=== PATIENT | female | born 1970 | race Caucasian/White ===

== ENCOUNTER 2017-05-02 10:19 | Emergency (ER) | payer OTHER, SELFPAY ==
[~2017-05-02] VITALS: Ht 154.9 cm; Wt 123.0 kg
[~2017-05-02 10:19] MED LIST: JANU100T PO; LEVO137T2 PO; METF500T13 PO; NORCOTAB PO; VITA100067 PO
[2017-05-02 10:20] VITALS: BP 143/87
[2017-05-02] MEDS ORDERED: FLUCONAZOLE 100 MG TAB PO ONE ×2 (11:45)
[2017-05-02 11:49] LABS: CONTROL LINE UCG INT CTR LINE PRESENT
== END 2017-05-02 12:04 | disposition home or self-care (01) ==
LOC: M ED 11:15
DX: R30.0 Dysuria (principal); E11.9 Type 2 diabetes mellitus without complications; N71.9 Inflammatory disease of uterus, unspecified; Z88.6 Allergy status to analgesic agent

== ENCOUNTER 2017-06-11 14:29 | Emergency (ER) | payer SELFPAY ==
[~2017-06-11] VITALS: Ht 154.9 cm; Wt 124.7 kg
[2017-06-11] MEDS ORDERED: NS 1,000 ML IV ONE (16:00)
[2017-06-11] MEDS ORDERED: metFORMIN (GLUCOPHAGE) 500 MG TAB PO ONE (16:00)
[2017-06-11 17:31] LABS: BASO % 0.5 % (0.0-1.0); EOS # 0.1 K/mm3 (0.0-0.50); EOS % 1.4 % (0.0-3.0); LARGE UNSTAINED CELL # 0.1 K/mm3 (0.0-0.4); LARGE UNSTAINED CELL % 1.5 % (0.0-4.0); LYMPH # 2.6 K/mm3 (1.5-4.5); LYMPH % 32.7 % (24.0-44.0); MEAN CORPUSCULAR HEMOGLOBIN 30.7 pg (27.0-33.0); MEAN CORPUSCULAR HGB CONC 34.6 g/dl (32.0-36.5); MEAN CORPUSCULAR VOLUME 88.8 fl (80.0-96.0); MONO # 0.4 K/mm3 (0.0-0.8); MONO % 5.3 % (0.0-5.0); NEUTROPHILS # 4.4 K/mm3 (1.8-7.7); NEUTROPHILS % 58.6 % (36.0-66.0); PLATELET COUNT, AUTOMATED 253 k/mm3 (150-450); RED CELL DISTRIBUTION WIDTH 13.5 % (11.5-14.5); WHITE BLOOD COUNT 7.5 K/mm3 (4.0-10.0)
[2017-06-11 17:32] LABS: ANION GAP 10 MEQ/L (8-16); BLOOD UREA NITROGEN 10 MG/DL (7-18); CALCIUM LEVEL 9.2 MG/DL (8.5-10.1); CARBON DIOXIDE LEVEL 22 MEQ/L (21-32); CHLORIDE LEVEL 102 MEQ/L (98-107); CREATININE FOR GFR 0.65 MG/DL (0.55-1.02); GLOMERULAR FILTRATION RATE > 60.0 (>58); GLUCOSE, FASTING 277 MG/DL (70-105); POTASSIUM SERUM 3.8 MEQ/L (3.5-5.1); SODIUM LEVEL 134 MEQ/L (136-145)
[2017-06-11] MEDS ORDERED: NITROFURANTOIN (MACROBID) 100 MG CAP PO ONE (17:45)
[2017-06-11] MEDS ORDERED: METF500T13 PO (17:47)
[2017-06-11] MEDS ORDERED: NYSTOI TOP (17:47)
[2017-06-11] MEDS ORDERED: MACR100C43 PO (17:47)
[2017-06-11] MEDS ORDERED: DIFL150T PO (17:51)
[2017-06-11 18:05] VITALS: BP 145/95
== END 2017-06-11 18:13 | disposition home or self-care (01) ==
LOC: M ED 14:29
DX: N39.0 Urinary tract infection, site not specified (principal); B37.3 Candidiasis of vulva and vagina; E11.9 Type 2 diabetes mellitus without complications; Z79.84 Long term (current) use of oral hypoglycemic drugs; Z88.6 Allergy status to analgesic agent

== ENCOUNTER 2017-10-31 13:16 | Emergency (ER) | payer SELFPAY ==
[~2017-10-31] VITALS: Ht 154.9 cm; Wt 120.6 kg
[~2017-10-31 13:16] MED LIST changes: +DIFL150T PO; +MACR100C43 PO; +NYSTOI TOP
[2017-10-31] MEDS ORDERED: NS 1,000 ML IV SCH (13:41)
[2017-10-31] MEDS ORDERED: ONDANSETRON 4MG/2ML VIAL (J2405) IV ONE (13:45)
[2017-10-31] MEDS ORDERED: MORPHINE 2 MG/ML 1ML SYRINGE IV PRN (13:45)
[2017-10-31 14:17] LABS: BASO % 0.6 % (0.0-1.0); EOS # 0.1 10^3/uL (0.0-0.50); EOS % 0.8 % (0.0-3.0); IMMATURE GRANULOCYTE % 0.6 % (0-0); LYMPH # 2.5 10^3/uL (1.5-4.5); LYMPH % 34.1 % (24.0-44.0); MEAN CORPUSCULAR HEMOGLOBIN 30.1 pg (27.0-33.0); MEAN CORPUSCULAR HGB CONC 35.1 g/dl (32.0-36.5); MEAN CORPUSCULAR VOLUME 85.7 fl (80.0-96.0); MONO # 0.6 10^3/uL (0.0-0.8); MONO % 8.3 % (0.0-5.0); NEUTROPHILS % 55.6 % (36.0-66.0); PLATELET COUNT, AUTOMATED 256 10^3/uL (150-450); RED CELL DISTRIBUTION WIDTH 12.9 % (11.5-14.5); WHITE BLOOD COUNT 7.2 10^3/uL (4.0-10.0)
[2017-10-31 14:26] LABS: INR 0.94
[2017-10-31 15:04] LABS: ALBUMIN 3.4 GM/DL (3.2-5.2); ALBUMIN/GLOBULIN RATIO 0.97 (1.00-1.93); ALKALINE PHOSPHATASE 56 U/L (45-117); ALT/SGPT 29 U/L (12-78); ANION GAP 12 MEQ/L (8-16); AST/SGOT 15 U/L (7-37); BILIRUBIN,DIRECT 0.1 MG/DL (0.0-0.2); BILIRUBIN,TOTAL 0.4 MG/DL (0.2-1.0); BLOOD UREA NITROGEN 12 MG/DL (7-18); CALCIUM LEVEL 8.8 MG/DL (8.5-10.1); CARBON DIOXIDE LEVEL 23 MEQ/L (21-32); CHLORIDE LEVEL 104 MEQ/L (98-107); CREATININE FOR GFR 0.74 MG/DL (0.55-1.02); GLOMERULAR FILTRATION RATE > 60.0 (>58); GLUCOSE, FASTING 278 MG/DL (70-105); POTASSIUM SERUM 3.7 MEQ/L (3.5-5.1); SODIUM LEVEL 139 MEQ/L (136-145); TOTAL PROTEIN 6.9 GM/DL (6.4-8.2)
[2017-10-31] MEDS ORDERED: METF500T13 PO (15:18)
[2017-10-31 15:29] VITALS: BP 133/84
--- NOTE | 2017-10-31 19:40 | ECGEPIP ---
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
--- NOTE | 2017-10-31 21:33 | REP ---
CHEST, TWO VIEWS: COMPARISON: 10/01/2015 There is no evidence of acute infiltrate. No pleural effusion is seen. The heart is normal in size. The mediastinal silhouette is unremarkable. The visualized osseous structures are intact. IMPRESSION: No acute pulmonary disease. Signed by Sree Holloway MD 11/01/2017 08:32 P
== END 2017-10-31 15:31 | disposition home or self-care (01) ==
LOC: M ED 13:16
DX: M54.12 Radiculopathy, cervical region (principal); E11.65 Type 2 diabetes mellitus with hyperglycemia; Z91.14 Patient's other noncompliance with medication regimen; Z82.49 Family history of ischemic heart disease and other diseases of the circulatory system; Z79.84 Long term (current) use of oral hypoglycemic drugs; Z88.6 Allergy status to analgesic agent

== ENCOUNTER 2017-11-13 15:44 | Emergency (ER) | payer SELFPAY | END 2017-11-13 20:57 | disposition home or self-care (01) | LOC: M ED 15:44 | DX: S06.0X0A Concussion without loss of consciousness, initial encounter (principal); E11.9 Type 2 diabetes mellitus without complications; Y04.0XXA Assault by unarmed brawl or fight, initial encounter; Y92.89 Other specified places as the place of occurrence of the external cause | CPT/HCPCS: 70450 ==

== ENCOUNTER → 2018-01-10 | Outpatient (REF) | payer OTHER ==
[2018-01-10 13:25] LABS: BASO % 0.3 % (0.0-1.0); EOS % 0.3 % (0.0-3.0); HEMATOCRIT 42.9 % (36.0-47.0); IMMATURE GRANULOCYTE % 0.5 % (0-3.0); LYMPH # 1.3 10^3/uL (1.5-4.5); MEAN CORPUSCULAR HEMOGLOBIN 30.4 pg (27.0-33.0); MONO # 0.6 10^3/uL (0.0-0.8); MONO % 9.6 % (0.0-5.0); NEUTROPHILS # 3.9 10^3/uL (1.8-7.7); NEUTROPHILS % 67.3 % (36.0-66.0); PLATELET COUNT, AUTOMATED 243 10^3/uL (150-450); RED BLOOD COUNT 4.93 10^6/uL (4.00-5.40); RED CELL DISTRIBUTION WIDTH 13.1 % (11.5-14.5); WHITE BLOOD COUNT 5.8 10^3/uL (4.0-10.0)
[2018-01-10 13:59] LABS: ALBUMIN 3.5 GM/DL (3.2-5.2); ALKALINE PHOSPHATASE 64 U/L (45-117); ALT/SGPT 20 U/L (12-78); ANION GAP 12 MEQ/L (8-16); AST/SGOT 12 U/L (7-37); BILIRUBIN,TOTAL 0.5 MG/DL (0.2-1.0); BLOOD UREA NITROGEN 12 MG/DL (7-18); CALCIUM LEVEL 8.3 MG/DL (8.5-10.1); CARBON DIOXIDE LEVEL 22 MEQ/L (21-32); CHLORIDE LEVEL 102 MEQ/L (98-107); CHOLESTEROL LEVEL 170 MG/DL (<200); CHOLESTEROL RISK RATIO 4.594 (<5); CREATININE FOR GFR 0.69 MG/DL (0.55-1.30); FREE THYROXINE INDEX 2.4 % (1.3-4.8); GLOMERULAR FILTRATION RATE > 60.0 (>58); GLUCOSE, FASTING 260 MG/DL (70-100); HDL CHOLESTEROL 37 MG/DL (>40); NON-HDL-C 133 MG/DL; POTASSIUM SERUM 3.8 MEQ/L (3.5-5.1); SODIUM LEVEL 136 MEQ/L (136-145); T UPTAKE 32 % (30-39); THYROXINE (T4) 7.6 UG/DL (4.5-12.0); TOTAL PROTEIN 7.4 GM/DL (6.4-8.2); TRIGLYCERIDES LEVEL 215 MG/DL (<150)
[2018-01-10 14:35] LABS: ESTIMATED AVERAGE GLUCOSE 246 MG/DL (60-110); HEMOGLOBIN A1c 10.2 %
[2018-01-10 15:30] LABS: TOTAL 25(OH) VITAMIN D 11.9 NG/ML (30.0-100.0)
== END ==
LOC: M LAB REF 12:30
DX: E78.5 Hyperlipidemia, unspecified (principal); Z13.9 Encounter for screening, unspecified

== ENCOUNTER → 2018-03-20 | Outpatient (REF) | payer OTHER ==
[2018-03-20 18:26] LABS: AMORPHOUS SEDIMENT MODERATE (NEGATIVE); APPEARANCE, URINE TURBID (CLEAR); BACTERIA, URINE AUTO NEGATIVE (NEGATIVE); BILIRUBIN, URINE AUTO NEGATIVE (NEGATIVE); BLOOD, URINE BLOOD 1+ (NEGATIVE); COLOR, URINE YELLOW (YELLOW); GLUCOSE, URINE (UA) AUTO 3+ mg/dL (NEGATIVE); KETONE, URINE AUTO TRACE mg/dL (NEGATIVE); LEUKOCYTE ESTERASE, URINE AUTO NEGATIVE (NEGATIVE); MUCUS, URINE SMALL (NEGATIVE); NITRITE, URINE AUTO NEGATIVE (NEGATIVE); PROTEIN, URINE AUTO NEGATIVE (NEGATIVE); RBC, URINE AUTO 5 /HPF (0-3); SPECIFIC GRAVITY URINE AUTO 1.028 (1.002-1.035); SQUAMOUS EPITHELIAL CELL UR AU 4 /HPF (0-6); UROBILINOGEN, URINE AUTO 0.2 mg/dL (0.0-2.0); WBC, URINE AUTO 1 /HPF (0-3)
== END ==
LOC: M LAB REF 16:31
DX: N39.0 Urinary tract infection, site not specified (principal)

== ENCOUNTER 2018-03-29 14:35 | Emergency (ER) | payer OTHER ==
[2018-03-29 15:41] LABS: KETONE, URINE AUTO RFX TRACE mg/dL (NEGATIVE); LEUKOCYTE ESTERASE UR AUTO RFX NEGATIVE (NEGATIVE); MUCUS, URINE RFX SMALL (NEGATIVE); NITRITE, URINE AUTO RFX NEGATIVE (NEGATIVE); RBC, URINE AUTO RFX 0 /HPF (0-3); SPECIFIC GRAVITY UR AUTO RFX 1.026 (1.002-1.035); SQUAM EPITHELIAL CELL UR AURFX 0 /HPF (0-6); WBC, URINE AUTO RFX 0 /HPF (0-3)
[2018-03-29 15:47] LABS: BASO % 0.3 % (0.0-1.0); EOS # 0.1 10^3/uL (0.0-0.50); EOS % 0.9 % (0.0-3.0); HEMATOCRIT 43.2 % (36.0-47.0); HEMOGLOBIN 15.2 g/dl (12.0-15.5); IMMATURE GRANULOCYTE % 0.1 % (0-3.0); LYMPH # 2.5 10^3/uL (1.5-4.5); LYMPH % 33.4 % (24.0-44.0); MEAN CORPUSCULAR HEMOGLOBIN 30.5 pg (27.0-33.0); MEAN CORPUSCULAR HGB CONC 35.2 g/dl (32.0-36.5); MEAN CORPUSCULAR VOLUME 86.7 fl (80.0-96.0); MONO # 0.6 10^3/uL (0.0-0.8); MONO % 7.5 % (0.0-5.0); NEUTROPHILS # 4.4 10^3/uL (1.8-7.7); NEUTROPHILS % 57.8 % (36.0-66.0); PLATELET COUNT, AUTOMATED 267 10^3/uL (150-450); RED BLOOD COUNT 4.98 10^6/uL (4.00-5.40); WHITE BLOOD COUNT 7.6 10^3/uL (4.0-10.0)
[2018-03-29 16:07] LABS: ANION GAP 11 MEQ/L (8-16); BLOOD UREA NITROGEN 12 MG/DL (7-18); CARBON DIOXIDE LEVEL 21 MEQ/L (21-32); CHLORIDE LEVEL 107 MEQ/L (98-107); CREATININE FOR GFR 0.81 MG/DL (0.55-1.30); GLOMERULAR FILTRATION RATE > 60.0 (>58); GLUCOSE, FASTING 234 MG/DL (70-100); POTASSIUM SERUM 3.9 MEQ/L (3.5-5.1); SODIUM LEVEL 139 MEQ/L (136-145)
[2018-03-29] MEDS: METOCLOPRAMIDE INJ 10MG/2ML VIAL (J2765) IM (16:44)
[2018-03-29] MEDS: GI COCKTAIL 50ML BTL(HYOSCYAMINE/MAALOX/LIDOCAINE VISCOUS)(1:3:1) PO (16:44)
[2018-03-29] MEDS: SUCRALFATE SUSP 1GM/10ML UD PO (17:08)
[2018-03-29 18:56] LABS: ALBUMIN 3.6 GM/DL (3.2-5.2); ALBUMIN/GLOBULIN RATIO 0.88 (1.00-1.93); ALKALINE PHOSPHATASE 64 U/L (45-117); ALT/SGPT 31 U/L (12-78); AST/SGOT 24 U/L (7-37); BILIRUBIN,DIRECT < 0.1 MG/DL (0.0-0.2); BILIRUBIN,TOTAL 0.3 MG/DL (0.2-1.0); LIPASE 187 U/L (73-393); TOTAL PROTEIN 7.7 GM/DL (6.4-8.2)
== END 2018-03-29 19:51 | disposition home or self-care (01) ==
LOC: M ED 14:35
DX: R10.9 Unspecified abdominal pain (principal); R11.0 Nausea; E11.9 Type 2 diabetes mellitus without complications; Z88.8 Allergy status to other drugs, medicaments and biological substances; Z88.6 Allergy status to analgesic agent; Z79.84 Long term (current) use of oral hypoglycemic drugs
CPT/HCPCS: J2765

== ENCOUNTER → 2018-04-02 | Outpatient (REF) | payer OTHER ==
[2018-04-02 21:26] LABS: CHLAMYDIA DNA AMPLIFICATION NEGATIVE (NEGATIVE); GC DNA AMPLIFICATION NEGATIVE (NEGATIVE)
== END ==
LOC: M LAB REF 16:25
DX: Z11.3 Encounter for screening for infections with a predominantly sexual mode of transmission (principal)

== ENCOUNTER → 2018-04-02 | Outpatient (REF) | payer OTHER ==
[2018-04-03 10:18] LABS: HIV 1&2 SCREEN CENTAUR NEGATIVE (NEGATIVE)
== END ==
LOC: M LAB REF 17:28
DX: Z11.3 Encounter for screening for infections with a predominantly sexual mode of transmission (principal)
CPT/HCPCS: 86780

== ENCOUNTER → 2018-04-04 | Outpatient (CLI) | payer OTHER | LOC: M RAD 15:50 | DX: R19.7 Diarrhea, unspecified (principal); R10.9 Unspecified abdominal pain; K76.0 Fatty (change of) liver, not elsewhere classified; K42.9 Umbilical hernia without obstruction or gangrene | CPT/HCPCS: 74176 ==

== ENCOUNTER → 2018-05-23 | Outpatient (REF) | payer OTHER ==
[2018-05-23 14:36] LABS: ESTIMATED AVERAGE GLUCOSE 220 MG/DL (60-110); HEMOGLOBIN A1c 9.3 %
== END ==
LOC: M LAB REF 13:37
DX: E11.9 Type 2 diabetes mellitus without complications (principal)

== ENCOUNTER 2018-07-30 09:11 | Day surgery (SDC) | payer OTHER ==
[~2018-07-30 09:11] MED LIST changes: -DIFL150T PO; -JANU100T PO; -LEVO137T2 PO; +LIDOCAINE 2% INJ 100 MG/5 ML SDV (FOR ANES.) As Ordered; -MACR100C43 PO; -METF500T13 PO; -NORCOTAB PO; -NYSTOI TOP; +PROPOFOL 200 MG/20 ML VIAL As Ordered; -VITA100067 PO
[2018-07-30] MEDS: NS 1,000 ML IV (09:15)
[2018-07-30] MEDS ORDERED: PROPOFOL 200 MG/20 ML VIAL As Ordered (10:57)
== END 2018-07-30 11:35 | disposition home or self-care (01) ==
LOC: M OPP 09:11
DX: R19.4 Change in bowel habit (principal); R10.2 Pelvic and perineal pain; R15.9 Full incontinence of feces; K59.00 Constipation, unspecified; D12.5 Benign neoplasm of sigmoid colon; K64.8 Other hemorrhoids; E11.9 Type 2 diabetes mellitus without complications; K21.9 Gastro-esophageal reflux disease without esophagitis; R12 Heartburn; J45.909 Unspecified asthma, uncomplicated; F32.9 Major depressive disorder, single episode, unspecified; F41.9 Anxiety disorder, unspecified; Z88.8 Allergy status to other drugs, medicaments and biological substances; Z79.84 Long term (current) use of oral hypoglycemic drugs; Z79.899 Other long term (current) drug therapy
CPT/HCPCS: 45385

== ENCOUNTER → 2018-09-20 | Outpatient (REF) | payer OTHER ==
[2018-09-20 17:20] LABS: ESTIMATED AVERAGE GLUCOSE 171 MG/DL (60-110); HEMOGLOBIN A1c 7.6 %
== END ==
LOC: M LAB REF 16:34
DX: E11.9 Type 2 diabetes mellitus without complications (principal)

== ENCOUNTER → 2019-01-29 | Outpatient (REF) | payer OTHER ==
[~2019-01-29] MED LIST changes: +ALOG25TA PO; +DIFL150T PO; +GLIM2TAB PO; +JANU100T PO; +LEVO137T2 PO; -LIDOCAINE 2% INJ 100 MG/5 ML SDV (FOR ANES.) As Ordered; +MACR100C43 PO; +METF500T13 PO; +NORCOTAB PO; +NYSTOI TOP; +PEPC1TAB5 PO; -PROPOFOL 200 MG/20 ML VIAL As Ordered; +STEG5TAB PO; +SUCR1SS PO; +VITA100067 PO
[2019-01-29 14:07] LABS: BASO % 0.5 % (0.0-1.0); EOS # 0.1 10^3/uL (0.0-0.50); EOS % 1.2 % (0.0-3.0); LYMPH # 2.4 10^3/uL (1.5-4.5); LYMPH % 36.5 % (24.0-44.0); MEAN CORPUSCULAR HEMOGLOBIN 29.8 pg (27.0-33.0); MEAN CORPUSCULAR HGB CONC 34.9 g/dl (32.0-36.5); MEAN CORPUSCULAR VOLUME 85.5 fl (80.0-96.0); MONO # 0.5 10^3/uL (0.0-0.8); MONO % 7.4 % (0.0-5.0); NEUTROPHILS # 3.6 10^3/uL (1.8-7.7); NEUTROPHILS % 54.2 % (36.0-66.0); PLATELET COUNT, AUTOMATED 263 10^3/uL (150-450); RED BLOOD COUNT 5.03 10^6/uL (4.00-5.40); WHITE BLOOD COUNT 6.7 10^3/uL (4.0-10.0)
[2019-01-29 14:20] LABS: ALBUMIN 3.6 GM/DL (3.2-5.2); ALT/SGPT 42 U/L (12-78); BILIRUBIN,TOTAL 0.6 MG/DL (0.2-1.0); BLOOD UREA NITROGEN 9 MG/DL (7-18); CALCIUM LEVEL 8.8 MG/DL (8.5-10.1); CARBON DIOXIDE LEVEL 22 MEQ/L (21-32); CHLORIDE LEVEL 104 MEQ/L (98-107); CHOLESTEROL LEVEL 228 MG/DL (<200); CHOLESTEROL RISK RATIO 6.514 (<5); GLOMERULAR FILTRATION RATE > 60.0 (>58); GLUCOSE, FASTING 265 MG/DL (70-100); HDL CHOLESTEROL 35 MG/DL (>40); LDL CHOLESTEROL 141 MG/DL (<100); NON-HDL-C 193 MG/DL; POTASSIUM SERUM 4.2 MEQ/L (3.5-5.1); SODIUM LEVEL 136 MEQ/L (136-145); TOTAL PROTEIN 7.3 GM/DL (6.4-8.2); TRIGLYCERIDES LEVEL 258 MG/DL (<150)
[2019-01-29 14:26] LABS: HEMOGLOBIN A1c 10.2 %
== END ==
LOC: M LAB REF 13:38
PROVIDERS: ATTEND Nurse Practitioner Family
DX: Z13.9 Encounter for screening, unspecified (principal)

== ENCOUNTER 2019-03-31 08:00 | Outpatient (RCR) | payer OTHER ==
[~2019-03-31 08:00] MED LIST changes: +HYDR-3715 PO; -NORCOTAB PO
== END 2019-04-11 ==
LOC: M PT 08:00
PROVIDERS: ATTEND Orthopaedic Surgery
DX: M47.896 Other spondylosis, lumbar region (principal); M51.36 Other intervertebral disc degeneration, lumbar region; M47.892 Other spondylosis, cervical region

== ENCOUNTER → 2019-05-27 | Outpatient (REF) | payer OTHER ==
[2019-05-27 16:19] LABS: CHOLESTEROL RISK RATIO 5.631 (<5); FREE T4 0.86 NG/DL (0.76-1.46); TOTAL T3 113.9 NG/DL (60.0-181.0)
[2019-05-27 18:15] LABS: HEMOGLOBIN A1c 8.7 %
== END ==
LOC: M LAB REF 14:56
PROVIDERS: ATTEND Nurse Practitioner Family
DX: E11.9 Type 2 diabetes mellitus without complications (principal); E78.5 Hyperlipidemia, unspecified

== ENCOUNTER → 2020-08-15 | Outpatient (REF) | payer OTHER ==
[~2020-08-15] MED LIST changes: -GLIM2TAB PO; +GLIM2TAB4 PO
[2020-08-15 21:33] LABS: APPEARANCE, URINE CLOUDY (CLEAR); BACTERIA, URINE AUTO 1+ (NEGATIVE); BILIRUBIN, URINE AUTO NEGATIVE (NEGATIVE); BLOOD, URINE BLOOD 1+ (NEGATIVE); COLOR, URINE YELLOW (YELLOW); GLUCOSE, URINE (UA) AUTO 3+ mg/dL (NEGATIVE); KETONE, URINE AUTO TRACE mg/dL (NEGATIVE); LEUKOCYTE ESTERASE, URINE AUTO TRACE (NEGATIVE); MUCUS, URINE SMALL (NEGATIVE); NITRITE, URINE AUTO NEGATIVE (NEGATIVE); PROTEIN, URINE AUTO NEGATIVE (NEGATIVE); RBC, URINE AUTO 4 /HPF (0-3); SPECIFIC GRAVITY URINE AUTO 1.042 (1.002-1.035); SQUAMOUS EPITHELIAL CELL UR AU 8 /HPF (0-6); UROBILINOGEN, URINE AUTO 0.2 mg/dL (0.0-2.0); WBC, URINE AUTO 2 /HPF (0-3)
== END ==
LOC: M LAB REF 13:36
PROVIDERS: ATTEND Physician Assistant Medical
DX: N39.0 Urinary tract infection, site not specified (principal)

== ENCOUNTER → 2020-09-02 | Outpatient (REF) | payer OTHER ==
[2020-09-02 17:02] LABS: HEMOGLOBIN A1c 13.2 %
[2020-09-02 17:02] LABS: ALBUMIN 3.7 GM/DL (3.2-5.2); ALT/SGPT 30 U/L (12-78); BILIRUBIN,TOTAL 0.4 MG/DL (0.2-1.0); BLOOD UREA NITROGEN 14 MG/DL (7-18); CALCIUM LEVEL 9.2 MG/DL (8.5-10.1); CARBON DIOXIDE LEVEL 26 MEQ/L (21-32); CHLORIDE LEVEL 103 MEQ/L (98-107); CHOLESTEROL LEVEL 226 MG/DL (<200); CHOLESTEROL RISK RATIO 5.512 (<5); CREATININE FOR GFR 0.82 MG/DL (0.55-1.30); GLOMERULAR FILTRATION RATE > 60.0 (>58); GLUCOSE, FASTING 339 MG/DL (70-100); HDL CHOLESTEROL 41 MG/DL (>40); LDL CHOLESTEROL 127 MG/DL (<100); NON-HDL-C 185 MG/DL; POTASSIUM SERUM 4.3 MEQ/L (3.5-5.1); SODIUM LEVEL 135 MEQ/L (136-145); TOTAL PROTEIN 7.8 GM/DL (6.4-8.2); TRIGLYCERIDES LEVEL 288 MG/DL (<150)
[2020-09-02 17:03] LABS: CREATININE, URINE 64.9 MG/DL; MALB URINE SIEMENS 45.5 MG/L; MAU/CREAT RATIO 70.1 MCG/MG (0.0-30.0)
[2020-09-02 17:05] LABS: FOLATE 12.7 NG/ML; TOTAL 25(OH) VITAMIN D 23.7 NG/ML (30.0-100.0); VITAMIN B12 LEVEL 365 PG/ML
== END ==
LOC: M SFHCPLAZ 12:16
PROVIDERS: ATTEND Physician Assistant
DX: E11.9 Type 2 diabetes mellitus without complications (principal); E03.9 Hypothyroidism, unspecified; E78.2 Mixed hyperlipidemia; E55.9 Vitamin D deficiency, unspecified; G63 Polyneuropathy in diseases classified elsewhere

== ENCOUNTER → 2021-02-08 | Outpatient (CLI) | payer OTHER ==
[2021-02-08 16:06] LABS: BLOOD UREA NITROGEN 16 MG/DL (7-18); CALCIUM LEVEL 9.6 MG/DL (8.5-10.1); CARBON DIOXIDE LEVEL 25 MEQ/L (21-32); CHLORIDE LEVEL 105 MEQ/L (98-107); CREATININE FOR GFR 0.69 MG/DL (0.55-1.30); GLOMERULAR FILTRATION RATE > 60.0 (>58); GLUCOSE, FASTING 189 MG/DL (70-100); SODIUM LEVEL 139 MEQ/L (136-145)
== END ==
LOC: M PLALAB 12:59
PROVIDERS: ATTEND Nurse Practitioner Family
DX: E11.65 Type 2 diabetes mellitus with hyperglycemia (principal)

== ENCOUNTER → 2021-02-18 | Outpatient (CLI) | payer OTHER ==
--- NOTE | 2021-02-18 12:36 | REPMRS ---
Patient History The patient states she has not had a clinical breast exam in over a year. Family history of breast cancer in paternal aunt, endometrial cancer in maternal grandmother. 3D TOMOSYNTHESIS WAS PERFORMED. [facility] lifetime risk for breast cancer is 13.9%. Volpara breast density b. Digital Woman Screen Mammo: February 18, 2021 - Exam #: [id number] Bilateral CC and MLO view(s) were taken. Technologist: Luna Villareal, Technologist Prior study comparison: February 23, 2011, bilateral digital mammo screening bilat, performed at [facility]. FINDINGS: There are scattered fibroglandular densities. There has been no change in the appearance of the mammogram from the prior studies. There is a mild amount of residual fibroglandular tissue which is fairly symmetric. There is no interval development of dominant mass, architectural distortion, or clustered microcalcification suggestive of malignancy. Assessment: BI-RADS/ACR category 1 mammogram. Negative Mammogram. Recommendation Routine screening mammogram in 1 year (for women over age 40). This mammogram was interpreted with the aid of an FDA-approved computer-aided dectection system. Electronically Signed By: Sree Holloway MD 02/18/21 [id number]
== END ==
LOC: M WHC 10:20
PROVIDERS: ATTEND Physician Assistant
DX: Z12.31 Encounter for screening mammogram for malignant neoplasm of breast (principal)

== ENCOUNTER → 2021-07-26 | Outpatient (CLI) | payer OTHER | LOC: M PLALAB 12:02 | PROVIDERS: ATTEND Physician Assistant | DX: Z53.9 Procedure and treatment not carried out, unspecified reason (principal); E11.9 Type 2 diabetes mellitus without complications ==

== ENCOUNTER → 2021-08-11 | Outpatient (CLI) | payer OTHER ==
[2021-08-11 14:05] LABS: HEMOGLOBIN A1c 9.8 %
[2021-08-11 14:25] LABS: ALBUMIN 3.6 GM/DL (3.2-5.2); ALT/SGPT 37 U/L (12-78); BILIRUBIN,TOTAL 0.5 MG/DL (0.2-1.0); BLOOD UREA NITROGEN 10 MG/DL (7-18); CALCIUM LEVEL 9.2 MG/DL (8.5-10.1); CARBON DIOXIDE LEVEL 25 MEQ/L (21-32); CHLORIDE LEVEL 104 MEQ/L (98-107); CHOLESTEROL LEVEL 241 MG/DL (<200); CHOLESTEROL RISK RATIO 5.738 (<5); FREE T4 0.61 NG/DL (0.76-1.46); GLOMERULAR FILTRATION RATE > 60.0 (>51); GLUCOSE, FASTING 259 MG/DL (70-100); HDL CHOLESTEROL 42 MG/DL (>40); LDL CHOLESTEROL 151 MG/DL (<100); NON-HDL-C 199 MG/DL; POTASSIUM SERUM 4.1 MEQ/L (3.5-5.1); SODIUM LEVEL 137 MEQ/L (136-145); TOTAL PROTEIN 7.3 GM/DL (6.4-8.2); TRIGLYCERIDES LEVEL 240 MG/DL (<150)
[2021-08-11 14:27] LABS: TOTAL 25(OH) VITAMIN D 21.5 NG/ML (30.0-100.0)
[2021-08-11 14:28] LABS: MALB URINE SIEMENS 70.4 MG/L; MAU/CREAT RATIO 36.4 MCG/MG (0.0-30.0)
== END ==
LOC: M PLALAB 10:16
PROVIDERS: ATTEND Physician Assistant
DX: E11.9 Type 2 diabetes mellitus without complications (principal)

== ENCOUNTER 2021-09-15 13:11 | Emergency (ER) | payer OTHER ==
[~2021-09-15] VITALS: Ht 154.9 cm; Wt 116.9 kg
--- OUTSIDE RECORDS SUMMARY | 2021-09-15 13:19 | CCD ---
Author Author [facility] Organization [facility] Address Unknown Phone Unavailable Care Team Providers Care Career Representative Name Role Phone Jovanna Daniels Unavailable PROBLEMS Type Condition ICD9-CM Code [id number] Code Onset Dates Condition S tatus W/U Status Risk SNOMED Code Notes Problem Mixed incontinence urge and stress (male)(female) 788.33 Active confirmed 692388691 Problem Back Pain - Lumbar 724.2 Active confirmed 2 53831708 Problem Shortness of breath 786.05 Active confirmed 091713477 Problem Endometriosis, site unspecified 617.9 Active confi rmed 475456119 Problem Esophageal reflux 530.81 Active confirmed 24 3190475 Problem Diabetes mellitus without me ntion of complication, type II or unspecified type, uncontrolled 250.02 Active confirmed 788409527 Problem Unspecified hypothyroidism 244.9 Active confirmed 93245548 Problem Mixed hyperlipidemia E78.2 Active confirmed 395712194 Problem Hypertensive heart disease without heart failure I 11.9 Active confirmed 66256085 Problem Other and unspecified hyperlipidemia 272.4 Act radhika confirmed 85003366 Problem Other chronic pain G89.29 Active confirmed 8 4741722 Problem Allergic rhinitis, cause unspecified 477.9 Act radhika confirmed 53784687 Problem Type 2 diabetes mellitus wit hout complication, without long-term current use of insulin E11.9 Active confirmed 546775898 Problem Hypothyroidism, unspecified type E03.9 Active conf irmed 60960740 Problem Polyneuropathy associated with underlying disease G63 Active confirmed 088837453 Problem Vitamin D deficiency E55.9 Active confirmed 09846903 ALLERGIES Allergen (clinical drug ingredient) Drug/Non Drug Allergy do cumented on EMR Reaction Allergy Type Onset Date Status NSAIDS hives Non Drug Allergy Active aspirin Aspirin([facility] Code:[address]-44) Nausea/Vomiting Drug Aller gy Active ENCOUNTERS from 1970 to 2021-08-08 Encounter Location Date Provider [facility] [address] [facility] [phone] [place] [address] Jul, Jovanna Jeremiah IMMUNIZATIONS No Information SOCIAL HISTORY Tobacco Use: Social History Observation Description Date Details (start date - stop date) Never Smoker Sex Assigned At : Social History Observation Description Sex Assigned At Unknown Education: Question Answer Notes Level of Education: Not Finished College Audit Question Answer Notes Total Score: 0 Interpretation: Alcohol Education Language: Question Answer Notes Languages spoken: Georgian Holiness: Question Answer Notes Holiness No sabianist beliefs that would impact health care. Sexual Hx: Question Answer Notes Had sex in the last 12 months (vaginal, oral, or anal)? Yes Have you ever had an STD? Yes with Men only Use protection? No Other? Yes Chlamydia? Yes Drug and Alcohol Question Answer Notes Total Score: 0 Interpretation: No problems reported Tobacco Use: Question Answer Notes Are you a: never smoker REASON FOR REFERRAL No Information VITAL SIGNS No information MEDICATIONS Medication SIG (Take, Route, Frequency, Duration) Notes Start Da te End Date Status metFORMIN HCl ER 500 MG TAKE TWO TABLETS BY MOUTH TWICE A DAY fo r 30 duplicate Not-Taking PriLOSEC 20 mg 1 capsule Orally Once a day for reflux for 30 da y(s) March, Not-Taking Lyrica 50 MG 1 capsule Orally Twice a day for 30 Days 23 S 2020 Active metFORMIN HCl 500 mg 1 tablet with evening meal Orally twice ken ly March, Active glipiZIDE 5 MG 1 tablet 30 minutes before b reakfast Orally Once a day for 30 day(s) Jul, Active Synthroid 100 MCG 1 tablet every morning on an empty stomach Orally Once a day for hypothyroid for 30 Active Claritin 10 mg 1 tablet Orally Once a day f or allergies/allergic bronchitis for 30 day(s) March, Not-Taking Lipitor 20 MG 1 tablet Orally Once a day for 30 Active Trulicity 3 MG/0.5ML as directed Subcutaneous weekly for 30 Days Active PROCEDURES No Information RESULTS No Results REASON FOR VISIT PA Trulicity 3mg/0.5mL pen MEDICAL (GENERAL) HISTORY Type Description Date Medical History Hypothyroidism Medical History T2DM Medical History GERD Medical History Hyperlipidemia Surgical History R ankle (laparascopic, in her teens) Surgical History explorative abd surgery-endometriosis Surgical History partial hysterectomy 2014 Hospitalization History gallbladder childhood Hospitalization History childbirth Hospitalization History mental health issue (SI/HI - depress ion) x 1 week - [facility] 10 yrs ago Goals Section No Information Health Concerns No Information MEDICAL EQUIPMENT No Information MENTAL STATUS No Information FUNCTIONAL STATUS No Information ASSESSMENTS No Information PLAN OF TREATMENT Medication Medication Name Sig Start Date Stop Date Trulicity 3 MG/0.5ML as directed Subcutaneous weekly for 30 Days Lyrica 50 MG 1 capsule Orally Twice a day for 30 Days Jul, glipiZIDE 5 MG 1 tablet 30 minutes before b reakfast Orally Once a day for 30 day(s) Jul, Insurance Providers Payer Name Payer Address Payer Phone Insured Name Patient Relati onship to Insured Coverage Start Date Coverage End Date [facility] [address] [facility] [phone] SERAFIN LIM self
--- OUTSIDE RECORDS SUMMARY | 2021-09-15 13:19 | CCD ---
Author Author [facility] Organization [facility] Address Unknown Phone Unavailable Care Team Providers Care Environmental Remediation Consultant Name Role Phone Jovanna Daniels Unavailable PROBLEMS Type Condition ICD9-CM Code XGW42-DT Code Onset Dates Condition S tatus W/U Status Risk SNOMED Code Notes Problem Mixed incontinence urge and stress (male)(female) 788.33 Active confirmed 442405689 Problem Back Pain - Lumbar 724.2 Active confirmed 2 13145141 Problem Shortness of breath 786.05 Active confirmed 803845004 Problem Endometriosis, site unspecified 617.9 Active confi rmed 494068223 Problem Esophageal reflux 530.81 Active confirmed 24 2010542 Problem Diabetes mellitus without me ntion of complication, type II or unspecified type, uncontrolled 250.02 Active confirmed 215735279 Problem Unspecified hypothyroidism 244.9 Active confirmed 41085938 Problem Mixed hyperlipidemia E78.2 Active confirmed 084111974 Problem Hypertensive heart disease without heart failure I 11.9 Active confirmed 09306079 Problem Other and unspecified hyperlipidemia 272.4 Act radhika confirmed 44601617 Problem Other chronic pain G89.29 Active confirmed 8 8035441 Problem Allergic rhinitis, cause unspecified 477.9 Act radhika confirmed 77422472 Problem Type 2 diabetes mellitus wit hout complication, without long-term current use of insulin E11.9 Active confirmed 625027235 Problem Hypothyroidism, unspecified type E03.9 Active conf irmed 89044526 Problem Polyneuropathy associated with underlying disease G63 Active confirmed 427827210 Problem Vitamin D deficiency E55.9 Active confirmed 58265759 ALLERGIES Allergen (clinical drug ingredient) Drug/Non Drug Allergy do cumented on EMR Reaction Allergy Type Onset Date Status NSAIDS hives Non Drug Allergy Active aspirin Aspirin([facility] Code:[address]-54) Nausea/Vomiting Drug Aller gy Active ENCOUNTERS from 1970 to 2021-08-04 Encounter Location Date Provider Diagnosis [facility] [address] [facility] [phone] [place] [address] Jul, Jovanna Jeremiah IMMUNIZATIONS No Information SOCIAL HISTORY Tobacco Use: Social History Observation Description Date Details (start date - stop date) Never Smoker Sex Assigned At : Social History Observation Description Sex Assigned At Unknown Education: Question Answer Notes Level of Education: Not Finished College Audit Question Answer Notes Total Score: 0 Interpretation: Alcohol Education Language: Question Answer Notes Languages spoken: Uruguayan Synagogue: Question Answer Notes Synagogue No caodaism beliefs that would impact health care. Sexual [...] Information RESULTS No Results REASON FOR VISIT [facility] referral form MEDICAL (GENERAL) HISTORY Type Description Date Medical History Hypothyroidism Medical History T2DM Medical History GERD Medical History Hyperlipidemia Surgical History R ankle (laparascopic, in her teens) Surgical History explorative abd surgery-endometriosis Surgical History partial hysterectomy 2014 Hospitalization History gallbladder childhood Hospitalization History childbirth Hospitalization History mental health issue (SI/[place] - depress ion) x 1 week - [facility] 10 yrs ago Goals Section No Information [...] Insured Coverage Start Date Coverage End Date [facility] [address] [facility] [phone] SERAFIN LIM self
--- OUTSIDE RECORDS SUMMARY | 2021-09-15 13:19 | CCD ---
Author Author [facility] Organization [facility] Address Unknown Phone Unavailable Care Team Providers Care News Broadcaster Name Role Phone Jovanna Daniels Unavailable PROBLEMS Type Condition ICD9-CM Code TJD78-[id number] Code Onset Dates Condition S tatus W/U Status Risk SNOMED Code Notes Problem Mixed incontinence urge and stress (male)(female) 788.33 Active confirmed 972986473 Problem Back Pain - Lumbar 724.2 Active confirmed 2 42792630 Problem Shortness of breath 786.05 Active confirmed 917862060 Problem Endometriosis, site unspecified 617.9 Active confi rmed 014944539 Problem Esophageal reflux 530.81 Active confirmed 24 2199251 Problem Diabetes mellitus without me ntion of complication, type II or unspecified type, uncontrolled 250.02 Active confirmed 659692092 Problem Unspecified hypothyroidism 244.9 Active confirmed 53262451 Problem Mixed hyperlipidemia E78.2 Active confirmed 334049174 Problem Hypertensive heart disease without heart failure I 11.9 Active confirmed 42140869 Problem Other and unspecified hyperlipidemia 272.4 Act radhika confirmed 92470882 Problem Other chronic pain G89.29 Active confirmed 8 9469169 Problem Allergic rhinitis, cause unspecified 477.9 Act radhika confirmed 68085796 Problem Type 2 diabetes mellitus wit hout complication, without long-term current use of insulin E11.9 Active confirmed 866811122 Problem Hypothyroidism, unspecified type E03.9 Active conf irmed 42028850 Problem Polyneuropathy associated with underlying disease G63 Active confirmed 170755715 Problem Vitamin D deficiency E55.9 Active confirmed 82351715 ALLERGIES Allergen (clinical drug ingredient) Drug/Non Drug Allergy do cumented on EMR Reaction Allergy Type Onset Date Status NSAIDS hives Non Drug Allergy Active aspirin Aspirin([facility] Code:[address]-03) Nausea/Vomiting Drug Aller gy Active ENCOUNTERS from 1970 to 2021-08-04 Encounter Location Date Provider [facility] [address] [facility] [phone] [place] [address] Jul, Jovanna Jeremiah IMMUNIZATIONS No Information SOCIAL HISTORY Tobacco Use: Social History Observation Description Date Details (start date - stop date) Never Smoker Sex Assigned At : Social History Observation Description Sex Assigned At Unknown Education: Question Answer Notes Level of Education: Not Finished College Audit Question Answer Notes Total Score: 0 Interpretation: Alcohol Education Language: Question Answer Notes Languages spoken: Kosovan Pentecostalism: Question Answer Notes Pentecostalism No baptist beliefs that would impact health care. Sexual [...] Information RESULTS No Results REASON FOR VISIT scripts MEDICAL (GENERAL) HISTORY Type Description Date Medical History Hypothyroidism Medical History T2DM Medical History GERD Medical History Hyperlipidemia Surgical History R ankle (laparascopic, in her teens) Surgical History explorative abd surgery-endometriosis Surgical History partial hysterectomy 2014 Hospitalization History gallbladder childhood Hospitalization History childbirth Hospitalization History mental health issue (SI/[place] - depress ion) x 1 week - [facility] 10 yrs ago Goals Section No [...] Insured Coverage Start Date Coverage End Date [facility] COMM[facility] PLAN [facility] [address] [facility] [phone] SERAFIN LIM self
--- OUTSIDE RECORDS SUMMARY | 2021-09-15 13:19 | CCD ---
Author Author [facility] Organization [facility] Address Unknown Phone Unavailable Care Team Providers Care Marketing Planner Name Role Phone MARKUS, B SATISH CASE INVESTIGATOR Unavailable Unavailable MARKUS, B SATISH CASE INVESTIGATOR Unavailable Unavailable MARKUS, B SATISH CASE INVESTIGATOR Unavailable Unavailable MARKUS, B ASTISH CASE INVESTIGATOR Unavailable Unavailable MARKUS, B SATISH CASE INVESTIGATOR Unavailable Unavailable MARKUS, B SATISH CASE INVESTIGATOR Unavailable Unavailable MARKUS, B SATISH CASE INVESTIGATOR Unavailable Unavailable MARKUS, B SATISH CASE INVESTIGATOR Unavailable Unavailable MARKUS, B SATISH CASE INVESTIGATOR Unavailable Unavailable MARKUS, B SATISH CASE INVESTIGATOR Unavailable Unavailable MARKUS, B SATISH CASE INVESTIGATOR Unavailable Unavailable MARKUS, B SATISH CASE INVESTIGATOR Unavailable Unavailable MARKUS, B SATISH CASE INVESTIGATOR Unavailable Unavailable MARKUS, B SATISH CASE INVESTIGATOR Unavailable Unavailable MARKUS, B SATISH CASE INVESTIGATOR Unavailable Unavailable MARKUS, B SATISH CASE INVESTIGATOR Unavailable Unavailable MARKUS, B SATISH CASE INVESTIGATOR Unavailable Unavailable MARKUS, B SATISH CASE INVESTIGATOR Unavailable Unavailable MARKUS, B SATISH CASE INVESTIGATOR Unavailable Unavailable MARKUS, B SATISH CASE INVESTIGATOR Unavailable Unavailable MARKUS, B SATISH CASE INVESTIGATOR Unavailable Unavailable MARKUS, B SATISH CASE INVESTIGATOR Unavailable Unavailable MARKUS, B SATISH CASE INVESTIGATOR Unavailable Unavailable MARKUS, B SATISH CASE INVESTIGATOR Unavailable Unavailable MARKUS, B SATISH CASE INVESTIGATOR Unavailable Unavailable MARKUS, B SATISH CASE INVESTIGATOR Unavailable Unavailable MARKUS, B SATISH CASE INVESTIGATOR Unavailable Unavailable MARKUS, B SATISH CASE INVESTIGATOR Unavailable Unavailable MARKUS, B SATISH CASE INVESTIGATOR Unavailable Unavailable MARKUS, B SATISH CASE INVESTIGATOR Unavailable Unavailable MARKUS, B SATISH CASE INVESTIGATOR Unavailable Unavailable MARKUS, B SATISH CASE INVESTIGATOR Unavailable Unavailable MARKUS, B SATISH CASE INVESTIGATOR Unavailable Unavailable MARKUS, B SATISH CASE INVESTIGATOR Unavailable Unavailable MARKUS, B SATISH CASE INVESTIGATOR Unavailable Unavailable MARKUS, B SATISH CASE INVESTIGATOR Unavailable Unavailable MARKUS, B SATISH CASE INVESTIGATOR Unavailable Unavailable MARKUS, B SATISH CASE INVESTIGATOR Unavailable Unavailable MARKUS, B SATISH CASE INVESTIGATOR Unavailable Unavailable MARKUS, B SATISH CASE INVESTIGATOR Unavailable Unavailable MARKUS, B SATISH CASE INVESTIGATOR Unavailable Unavailable MARKUS, B SATISH CASE INVESTIGATOR Unavailable Unavailable MARKUS, B SATISH CASE INVESTIGATOR Unavailable Unavailable MARKUS, B SATISH CASE INVESTIGATOR Unavailable Unavailable MARKUS, B SATISH CASE INVESTIGATOR Unavailable Unavailable MARKUS, B SATISH CASE INVESTIGATOR Unavailable Unavailable MARKUS, B SATISH CASE INVESTIGATOR Unavailable Unavailable MARKUS, B SATISH CASE INVESTIGATOR Unavailable Unavailable MARKUS, B SATISH CASE INVESTIGATOR Unavailable Unavailable MARKUS, B SATISH CASE INVESTIGATOR Unavailable Unavailable MARKUS, B SATISH CASE INVESTIGATOR Unavailable Unavailable MARKUS, B SATISH CASE INVESTIGATOR Unavailable Unavailable MARKUS, B SATISH CASE INVESTIGATOR Unavailable Unavailable MARKUS, B SATISH CASE INVESTIGATOR Unavailable Unavailable MARKUS, B SATISH CASE INVESTIGATOR Unavailable Unavailable MARKUS, B SATISH CASE INVESTIGATOR Unavailable Unavailable MARKUS, B SATISH CASE INVESTIGATOR Unavailable Unavailable MARKUS, B SATISH CASE INVESTIGATOR Unavailable Unavailable MARKUS, B SATISH CASE INVESTIGATOR Unavailable Unavailable MARKUS, B SATISH CASE INVESTIGATOR Unavailable Unavailable MARKUS, B SATISH CASE INVESTIGATOR Unavailable Unavailable MARKUS, B ASTISH CASE INVESTIGATOR Unavailable Unavailable Re-disclosure Warning The records that you are about to access may contain information from federally-assisted alcohol or drug abuse programs. If such information is present, then the following federally mandated warning applies: This information has been disclosed to you from records protected by federal confidentiality rules (42 CFR part 2). The federal rules prohibit you from making any further disclosure of this information unless further disclosure is expressly permitted by the written consent of the person to whom it pertains or as otherwise permitted by 42 CFR part 2. A general authorization for the release of medical or other information is NOT sufficient for this purpose. The Federal rules restrict any use of the information to criminally investigate or prosecute any alcohol or drug abuse patient.The records that you are about to access may contain highly sensitive health information, the redisclosure of which is protected by Article 27-F of the [facility] Public Health law. If you continue you may have access to information: Regarding HIV / AIDS; Provided by facilities licensed or operated by the [facility] Office of Mental Health; or Provided by the [facility] Office for People With Developmental Disabilities. If such information is present, then the following [facility] mandated warning applies: This information has been disclosed to you from confidential records which are protected by state law. State law prohibits you from making any further disclosure of this information without the specific written consent of the person to whom it pertains, or as otherwise permitted by law. Any unauthorized further disclosure in violation of state law may result in a fine or intermediate sentence or both. A general authorization for the release of medical or other information is NOT sufficient authorization for further disc losure. Family History Family Member Name Family Member Gender Family Member Status Date o f Status Description Data Source(s) Unknown Male Problem MEDENT ([facility]) Encounters Encounter Providers Location Date Indications Data Source(s ) Unknown [address] [facility] [address] 08/05/2021 12:00:00 AM EDT eCW1 ([facility]) Unknown [address] [facility] [address] 08/04/2021 12:00:00 AM EDT eCW1 ([facility]) Unknown [address] [facility] [address] 08/04/2021 12:00:00 AM EDT eCW1 ([facility]) Outpatient [address] [facility] [address] 07/26/2021 12:00:00 AM EDT eCW1 ([facility]) Unknown [address] [facility] [address] 04/06/2021 12:00:00 AM EDT eCW1 ([facility]) Outpatient [address] [facility] [address] 01/28/2021 12:00:00 AM EDT eCW1 ([facility]) Unknown [address] [facility] [address] 01/21/2021 12:00:00 AM EST eCW1 ([facility]) Outpatient Attender: SATISH APARICIO NP Physical Therapy 02:30:00 PM EST MEDENT ([facility]) Outpatient [address] [facility] [address] 10/21/2020 12:00:00 AM EST eCW1 ([facility]) Outpatient Attender: SATISH APARICIO NP Physical Therapy 09:30:00 AM EST MEDENT ([facility]) Unknown [address] [facility] [address] 09/24/2020 12:00:00 AM EST eCW1 ([facility]) Unknown [address] [facility] [address] 09/10/2020 12:00:00 AM EDT eCW1 (Pending sale to [facility]) Outpatient Attender: SATISH APARICIO NP Physical Therapy 10:00:00 AM EDT MED[facility] ([facility]) Unknown [address] [facility] [address] 09/03/2020 12:00:00 AM EDT eCW1 (Pending sale to [facility]) Outpatient [address] [facility] [address] 09/02/2020 12:00:00 AM EDT eCW1 (Pending sale to [facility]) Immunizations Vaccine Date Status Description Data Source(s) COVID-19 VACCINE Moderna 04/20/2021 12:00:00 AM EDT completed [facility] Vaccine Series Complete: YESThis Data wa s Submitted to [facility] [employer]. COVID-19 VACCINE Moderna 03/23/2021 12:00:00 AM EDT completed [facility] Vaccine Series Complete: NOThis Data was Submitted to [facility] [employer]. Medications Medication Brand Name Start Date Product Form Dose Route Admi nistrative Instructions Pharmacy Instructions Status Indications Reaction Description Data Source(s) pregabalin 50 MG Oral Capsule [Lyrica] Lyrica 50 MG Lyrica 5 0 MG 08/04/2021 12:00:00 AM EDT 1.0 {capsule} active L yrica 50 MG eCW1 ([facility]) pregabalin 50 MG Oral Capsule [Lyrica] Lyrica 50 MG Lyrica 5 0 MG 08/04/2021 12:00:00 AM EDT 1.0 {capsule} active L yrica 50 MG eCW1 ([facility]) pregabalin 50 MG Oral Capsule [Lyrica] Lyrica 50 MG Lyrica 5 0 MG 08/04/2021 12:00:00 AM EDT 1.0 {capsule} active L yrica 50 MG eCW1 ([facility]) pregabalin 50 MG Oral Capsule [Lyrica] Lyrica 50 MG Lyrica 5 0 MG 08/04/2021 12:00:00 AM EDT 1.0 {capsule} active L yrica 50 MG eCW1 ([facility]) Glipizide 5 MG Oral Tablet glipiZIDE 5 MG glipiZIDE 5 MG 07/26/2021 12:00:00 AM EDT active glipiZIDE 5 MG eC W1 ([facility]) Glipizide 5 MG Oral Tablet glipiZIDE 5 MG glipiZIDE 5 MG 07/26/2021 12:00:00 AM EDT active glipiZIDE 5 MG eC W1 ([facility]) Glipizide 5 MG Oral Tablet glipiZIDE 5 MG glipiZIDE 5 MG 07/26/2021 12:00:00 AM EDT active glipiZIDE 5 MG eC W1 ([facility]) Glipizide 5 MG Oral Tablet glipiZIDE 5 MG glipiZIDE 5 MG 07/26/2021 12:00:00 AM EDT active glipiZIDE 5 MG eC W1 ([facility]) gabapentin 100 MG Oral Capsule Gabapentin 100 MG Gabapentin 100 MG 02/18/2021 12:00:00 AM EDT 1.0 {capsule} active G abapentin 100 MG eCW1 ([facility]) gabapentin 100 MG Oral Capsule Gabapentin 100 MG Gabapentin 100 MG 02/18/2021 12:00:00 AM EDT 1.0 {capsule} active G abapentin 100 MG eCW1 ([facility]) Fluconazole 150 MG Oral Tablet [Diflucan] Diflucan 01/14/2021 1 2:00:00 AM EST ORAL active MED[facility] ([facility]) Steglatro Steglatro 12/24/2020 12:00:00 AM EST ORAL act radhika MEDENT ([facility]) atorvastatin 20 MG Oral Tablet [Lipitor] Lipitor 20 MG Lipit or 20 MG 10/21/2020 12:00:00 AM EST 1.0 {tablet} active Li pitor 20 MG eCW1 ([facility]) atorvastatin 20 MG Oral Tablet [Lipitor] Lipitor 20 MG Lipit or 20 MG 10/21/2020 12:00:00 AM EST 1.0 {tablet} active Li pitor 20 MG eCW1 ([facility]) 0.5 ML dulaglutide 3 MG/ML Auto-Injector [Trulicity] Trulici ty 10/14/2020 12:00:00 AM EST active M EDENT ([facility]) Benjy Araujo Lancets Extra Fine 33G 09/09/2020 12:00:00 AM ED T active [facility] ([facility]) 0.5 ML dulaglutide 1.5 MG/ML Auto-Injector [Trulicity] [place] 09/09/2020 12:00:00 AM EDT completed MED[facility] ([facility]) Benjy Verio 09/09/2020 12:00:00 AM EDT act radhika MEDENT ([facility]) Insurance Providers Payer name Policy type / Coverage type Policy ID Covered libertarian ID Covered libertarian's relationship to piña Policy Piña Plan Information Medicaid S [id number] S [id number] [facility] Community Plan Commercial [id number] Self [id number] [facility] COMMUNITY PLAN [facility] [id number] SP [id number] Managed Care - [facility] P [id number] S [id number] Medicaid S [id number] S [id number] Managed Care - [facility] P [id number] S [id number] [facility] Essential Plan P [id number] S [id number] Managed Care - [facility] Community Plan P [id number] S [id number] Managed Care - [facility] P [id number] S [id number] Medicaid S [id number] S [id number] Managed Care - [facility] Community Plan P [id number] S [id number] Medicaid S [id number] S [id number] Managed Care - [facility] P [id number] S [id number] SELF PAY ONLY [id number] SP [id number] [facility] PHY [id number] SP [id number] [facility] COMMUNITY PLAN [facility] [id number] SP [id number] [facility] COMMUNITY PLAN [facility] [id number] SP [id number] [facility] Essential Plan S [id number] S [id number] Self Pay P UNAVAILABLE S UNAVAILA BLE [facility] COMMUNITY PLAN [facility] [id number] SP [id number] [facility] Health Maintenance Organization (HMO) [id number] Self [id number] [facility] Health Maintenance Organization (O) [id number] Self [id number] [facility] O [id number] S [id number] MEDICAID [id number] SP [id number] [employer] COMMUNITY PLAN [facility] [id number] SP [id number] [employer] COMMUNITY PLAN [facility] [id number] SP [id number] Problems, Conditions, and Diagnoses Code Display Name Description Problem Type Effective Dates Data Source(s) G89.29 [id number] Other chronic pain Problem 08/04/2021 12:00: 00 AM EDT eCW1 ([facility]) [id number] Essential hypertension Essential hypertension Problem 09/09/2020 12:00:00 AM EDT MED[facility] ([facility]) E55.9 Vitamin D deficiency Vitamin D deficiency Problem 09/02/2020 12:00:00 AM EDT eCW1 ([facility]) G63 [id number] Polyneuropathy associated with underlying disease Problem 09/02/2020 12:00:00 AM EDT eCW1 ([facility]) E03.9 [id number] Hypothyroidism, unspecified type Problem 09/02/2020 12:00:00 AM EDT eCW1 ([facility]) E11.9 [id number] Type 2 diabetes larissa itus without complication, without long-term current use of insulin Problem 09/02/2020 12:00:00 AM EDT eCW1 ([facility]) I11.9 34480915 Hypertensive heart disease without heart failure Problem 09/02/2020 12:00:00 AM EDT eCW1 ([facility]) E78.2 [id number] Mixed hyperlipidemia Problem 09/02/2020 12:0 0:00 AM EDT eCW1 ([facility]) Surgeries/Procedures Procedure Description Date Indications Data Source(s) Diabetic Foot Exam 09/09/2020 12:00:00 AM EDT MED[facility] ([facility]) Results ID Date Data Source [id number] 04/15/2021 12:00:00 AM EDT [facility] Name Value Range Interpretation Code Description Data Abena rce(s) Supporting Document(s) SARS coronavirus 2 Ag NEGATIVE [facility] This lab was ordered by [facility] and reported by [facility]. ID Date Data Source [id number] 04/07/2021 12:00:00 AM EDT [facility] Name Value Range Interpretation Code Description Data Abena rce(s) Supporting Document(s) SARS coronavirus 2 Ag NEGATIVE [facility] This lab was ordered by [facility] and reported by [facility]. ID Date Data Source [id number] 04/04/2021 08:48:00 AM EDT [facility] Name Value Range Interpretation Code Description Data Abena rce(s) Supporting Document(s) SARS-CoV-2 (COVID-19) RNA [Presence] in Respiratory specimen by JAE with probe detection Not Detected [facility] This lab was ordered by [facility] and reported by [employer] ID Date Data Source [id number] 03/29/2021 11:23:00 AM EDT [facility] Name Value Range Interpretation Code Description Data Abena rce(s) Supporting Document(s) SARS-CoV-2 (COVID-19) RNA [Presence] in Respiratory specimen by JAE with probe detection Not Detected [facility] This lab was ordered by [facility] and reported by [employer] ID Date Data Source [id number] 02/08/2021 01:07:00 PM EDT MEDENT ([facility]) Name Value Range Interpretation Code Description Data Abena rce(s) Supporting Document(s) Glucose, Fasting 189 mg/dL 70-100 MED[facility] ([facility]) Blood Urea Nitrogen 16 mg/dL 7-18 [facility] ([facility]) Creatinine For GFR 0.69 mg/dL 0.55-1.30 MED[facility] ([facility]) Glomerular Filtration Rate Laboratory test result MEDENT ([facility]) <content>Units are mL/min/1.73 m2</content>
<content></content>
<content>Chronic Kidney Disease Staging per NKF:</content>
<content></content>
<content>Stage I & II GFR >=60 Normal to Mildly Decreased</content>
<content>Stage III GFR 30- 59 Moderately Decreased</content>
<content>Stage IV GFR 15-29 Severely Decreased</content>
<content>Stage V GFR <15 Very Little GFR Left</content>
<content>ESRD GFR <15 on MATHEMATICS PROFESSOR</content>
<content></content> Sodium Level 139 meq/L 136-145 [facility] ([facility]) Potassium Serum 4.0 meq/L 3.5-5.1 MED[facility] ([facility]) Chloride Level 105 meq/L 98-107 [facility] ([facility]) Anion Gap 9 meq/L 8-16 [facility] ([facility]) Calcium Level 9.6 mg/dL 8.5-10.1 [facility] ([facility]) Carbon Dioxide Level 25 meq/L 21-32 [facility] ([facility]) ID Date Data Source [id number] 12/24/2020 01:42:00 PM EST MEDENT ([facility]) Name Value Range Interpretation Code Description Data Abena rce(s) Supporting Document(s) Glucose [Mass/volume] in Serum or Plasma 206 [facility] ([facility]) Hemoglobin A1c/Hemoglobin.total in Blood Laboratory test result MEDENT ([facility]) ID Date Data Source [id number] 09/02/2020 12:00:00 AM EDT eCW1 ([facility]) Name Value Range Interpretation Code Description Data Abena rce(s) Supporting Document(s) 365 eCW1 ([facility]) 12.7 eCW1 ([facility]) ID Date Data Source [id number] 09/02/2020 12:00:00 AM EDT eCW1 ([facility]) Name Value Range Interpretation Code Description Data Abnea rce(s) Supporting Document(s) 23.7 30.0-100.0 eCW1 ([facility]) ID Date Data Source [id number] 09/02/2020 12:00:00 AM EDT eCW1 ([facility]) Name Value Range Interpretation Code Description Data Abena rce(s) Supporting Document(s) Albumin/Creatinine [Mass Ratio] in Urine 45.5 eCW1 ([facility]) Microalbumin/Creatinine [Mass Ratio] in Urine 64.9 eCW1 ([facility]) Microalbumin/Creatinine [Ratio] in Urine 70.1 0.0-30.0 eCW1 ([facility]) ID Date Data Source LIPID PANEL (CARDIAC RISK) 09/02/2020 12:00:00 AM EDT eCW1 ( [facility]) Name Value Range Interpretation Code Description Data Abena rce(s) Supporting Document(s) Triglyceride [Mass/volume] in Serum or Plasma by calculation 288 <150 eCW1 ([facility]) Cholesterol in HDL [Moles/volume] in Serum or Plasma 41 >40 eCW1 ([facility]) Cholesterol in LDL [Mass/volume] in Serum or Plasma by calculation 12 7 <100 eCW1 ([facility]) Cholesterol [Moles/volume] in Serum or Plasma 226 <200 eCW1 ([facility]) 185 eCW1 ([facility]) 5.512 <5 eCW1 ([facility]) ID Date Data Source [id number] 09/02/2020 12:00:00 AM EDT eCW1 ([facility]) Name Value Range Interpretation Code Description Data Abena rce(s) Supporting Document(s) Hemoglobin A1c/Hemoglobin.total in Blood 13.2 eCW1 ([facility]) ID Date Data Source FREE T4 & TSH PANEL 09/02/2020 12:00:00 AM EDT eCW1 ([facility]) Name Value Range Interpretation Code Description Data Abena rce(s) Supporting Document(s) 4.010 0.358-3.740 eCW1 ([facility]) 1.00 0.76-1.46 eCW1 ([facility]) ID Date Data Source Comprehensive Metabolic Profile (CMP) 09/02/2020 12:00:00 AM EDT eCW1 ([facility]) Name Value Range Interpretation Code Description Data Abena rce(s) Supporting Document(s) 14 7-18 eCW1 ([facility]) 339 70-100 eCW1 ([facility]) > 60.0 >58 eCW1 ([facility]) 0.82 0.55-1.30 eCW1 ([facility]) 135 136-145 eCW1 ([facility]) 103 98-107 eCW1 ([facility]) 4.3 3.5-5.1 eCW1 ([facility]) 30 12-78 eCW1 ([facility]) 9.2 8.5-10.1 eCW1 ([facility]) 12 7-37 eCW1 ([facility]) 26 21-32 eCW1 ([facility]) 70 45-117 eCW1 ([facility]) 3.7 3.2-5.2 eCW1 ([facility]) 0.4 0.2-1.0 eCW1 ([facility]) 7.8 6.4-8.2 eCW1 ([facility]) 0.9 1.2-2.2 eCW1 ([facility]) Procedure Social History Code Duration Value Status Description Data Source(s ) Smoking 07/26/2021 12:00:00 AM EDT Never Smoker completed Never S moker eCW1 ([facility]) Smoking 07/26/2021 12:00:00 AM EDT Never Smoker completed Never S moker eCW1 ([facility]) Smoking 07/26/2021 12:00:00 AM EDT Never Smoker completed Never S moker eCW1 ([facility]) Smoking 07/26/2021 12:00:00 AM EDT Never Smoker completed Never S moker eCW1 ([facility]) Smoking 01/27/2021 12:00:00 AM EDT Never Smoker completed Never S moker eCW1 ([facility]) Smoking 01/27/2021 12:00:00 AM EDT Never Smoker completed Never S moker eCW1 ([facility]) Smoking 01/20/2021 12:00:00 AM EST Never Smoker completed Never S moker eCW1 ([facility]) Smoking 12/24/2020 12:00:00 AM EST Never Smoked Cigarettes com pleted Never Smoked Cigarettes MEDENT ([facility]) Smoking 10/21/2020 12:00:00 AM EST Never Smoker completed Never S moker eCW1 ([facility]) Smoking 09/02/2020 12:00:00 AM EDT Never Smoker completed Never S moker eCW1 ([facility]) Smoking 09/02/2020 12:00:00 AM EDT Never Smoker completed Never S moker eCW1 ([facility]) Smoking 09/02/2020 12:00:00 AM EDT Never Smoker completed Never S moker eCW1 ([facility]) Smoking 09/02/2020 12:00:00 AM EDT Never Smoker completed Never S moker eCW1 ([facility]) Vital Signs ID Date Data Source UNK Name Value Range Interpretation Code Description Data Source(s) Body weight 258 [lb_av] 258 [lb_av] eCW1 ([facility]) Body weight 117.03 kg 117.03 kg eCW1 ([facility]) Body height 61.75 [in_i] 61.75 [in_i] eCW1 ([facility]) Body mass index (BMI) [Ratio] 47.57 kg/m2 47.57 kg/m2 W1 ([facility]) Heart rate 105 /min 105 /min eCW1 ([facility]) Respiratory rate 18 /min 18 /min eCW1 ([facility]) Body temperature 97.7 [degF] 97.7 [degF] eCW1 ( [facility]) Systolic blood pressure 124 mm[Hg] 124 mm[Hg] e CW1 ([facility]) Diastolic blood pressure 8 mm[Hg] 8 mm[Hg] eCW1 ([facility]) Body weight 253 [lb_av] 253 [lb_av] eCW1 ([facility]) Body height 61.75 [in_i] 61.75 [in_i] eCW1 ([facility]) Body mass index (BMI) [Ratio] 46.64 kg/m2 46.64 kg/m2 eCW1 ([facility]) Heart rate 99 /min 99 /min eCW1 ([facility]) Respiratory rate 18 /min 18 /min eCW1 ([facility]) Body temperature 97.3 [degF] 97.3 [degF] eCW1 ( [facility]) Systolic blood pressure 122 mm[Hg] 122 mm[Hg] e CW1 ([facility]) Diastolic blood pressure 84 mm[Hg] 84 mm[Hg] eCW1 ([facility]) Systolic blood pressure 126 mm[Hg] 126 mm[Hg] M EDENT ([facility]) Diastolic blood pressure 86 mm[Hg] 86 mm[Hg] MEDENT ([facility]) Body height 61.4 [in_i] 61.4 [in_i] MEDENT ([facility]) 5'1.40" Body weight 260.12 [lb_av] 260.12 [lb_av] MEDEN T ([facility]) Body temperature 96.4 [degF] 96.4 [degF] MEDENT ([facility]) Heart rate 87 /min 87 /min MEDENT ([facility]) Body mass index (BMI) [Ratio] 48.5 kg/m2 48.5 k g/m2 MEDENT ([facility]) Oxygen saturation in Arterial blood by Pulse oximetry 98 % 98 % MEDENT ([facility]) Body weight 265 [lb_av] 265 [lb_av] eCW1 ([facility]) Body height 61.75 [in_i] 61.75 [in_i] eCW1 ([facility]) Heart rate 93 /min 93 /min eCW1 ([facility]) Body mass index (BMI) [Ratio] 48.86 kg/m2 48.86 kg/m2 eCW1 ([facility]) Respiratory rate 18 /min 18 /min eCW1 ([facility]) Body temperature 97.5 [degF] 97.5 [degF] eCW1 ( [facility]) Systolic blood pressure 122 mm[Hg] 122 mm[Hg] e CW1 ([facility]) Diastolic blood pressure 80 mm[Hg] 80 mm[Hg] eCW1 ([facility]) Systolic blood pressure 122 mm[Hg] 122 mm[Hg] M EDENT ([facility]) Diastolic blood pressure 80 mm[Hg] 80 mm[Hg] MEDENT ([facility]) Heart rate 68 /min 68 /min MEDENT ([facility]) Body temperature 97.2 [degF] 97.2 [degF] MEDENT ([facility]) Body height 61.4 [in_i] 61.4 [in_i] MEDENT ([facility]) 5'1.40" Body weight 262.00 [lb_av] 262.00 [lb_av] MEDEN T ([facility]) Body mass index (BMI) [Ratio] 48.9 kg/m2 48.9 k g/m2 MEDENT ([facility]) Systolic blood pressure 142 mm[Hg] 142 mm[Hg] M EDENT ([facility]) Diastolic blood pressure 84 mm[Hg] 84 mm[Hg] MEDENT ([facility]) Heart rate 73 /min 73 /min MEDENT ([facility]) Body temperature 97.1 [degF] 97.1 [degF] MEDENT ([facility]) Body height 61.4 [in_i] 61.4 [in_i] MEDENT ([facility]) 5'1.40" Body weight 265.25 [lb_av] 265.25 [lb_av] MEDEN T ([facility]) Body mass index (BMI) [Ratio] 49.5 kg/m2 49.5 k g/m2 MEDENT ([facility]) Oxygen saturation in Arterial blood by Pulse oximetry 97 % 97 % MEDENT ([facility]) Body weight 264 [lb_av] 264 [lb_av] eCW1 ([facility]) Body height 61.75 [in_i] 61.75 [in_i] eCW1 ([facility]) Heart rate 111 /min 111 /min eCW1 ([facility]) Respiratory rate 18 /min 18 /min eCW1 ([facility]) Body temperature 98.1 [degF] 98.1 [degF] eCW1 ( [facility]) Systolic blood pressure 130 mm[Hg] 130 mm[Hg] e CW1 ([facility]) Diastolic blood pressure 80 mm[Hg] 80 mm[Hg] eCW1 ([facility]) Body mass index (BMI) [Ratio] 48.67 kg/m2 48.67 kg/m2 eCW1 ([facility]) Patient Treatment Plan of Care Planned Activity Planned Date Details Description Data Source (s) pregabalin 50 MG Oral Capsule [Lyrica] 08/04/2021 12:00:00 AM EDT eCW1 ([facility]) pregabalin 50 MG Oral Capsule [Lyrica] 08/04/2021 12:00:00 AM EDT eCW1 ([facility]) pregabalin 50 MG Oral Capsule [Lyrica] 08/04/2021 12:00:00 AM EDT eCW1 ([facility]) pregabalin 50 MG Oral Capsule [Lyrica] 08/04/2021 12:00:00 AM EDT eCW1 ([facility]) Glipizide 5 MG Oral Tablet 07/26/2021 12:00:00 AM EDT eCW1 ([facility]) Glipizide 5 MG Oral Tablet 07/26/2021 12:00:00 AM EDT eCW1 ([facility]) Glipizide 5 MG Oral Tablet 07/26/2021 12:00:00 AM EDT eCW1 ([facility]) Glipizide 5 MG Oral Tablet 07/26/2021 12:00:00 AM EDT eCW1 ([facility]) gabapentin 100 MG Oral Capsule 02/18/2021 12:00:00 AM EDT eCW1 ([facility]) gabapentin 100 MG Oral Capsule 02/18/2021 12:00:00 AM EDT eCW1 ([facility]) atorvastatin 20 MG Oral Tablet [Lipitor] 10/21/2020 12:00:00 AM EST eCW1 ([facility])
--- OUTSIDE RECORDS SUMMARY | 2021-09-15 13:19 | CCD ---
Author Author [facility] Organization [facility] Address Unknown Phone Unavailable Care Team Providers Care Case Advocate Name Role Phone Jovanna Daniels Unavailable PROBLEMS Type Condition ICD9-CM Code [id number] Code Onset Dates Condition S tatus W/U Status Risk SNOMED Code Notes Problem Mixed incontinence urge and stress (male)(female) 788.33 Active confirmed 589652986 Problem Back Pain - Lumbar 724.2 Active confirmed 2 22310627 Problem Shortness of breath 786.05 Active confirmed 916844421 Problem Endometriosis, site unspecified 617.9 Active confi rmed 758530487 Problem Esophageal reflux 530.81 Active confirmed 24 4633891 Problem Diabetes mellitus without me ntion of complication, type II or unspecified type, uncontrolled 250.02 Active confirmed 725120680 Problem Unspecified hypothyroidism 244.9 Active confirmed 92375573 Problem Mixed hyperlipidemia E78.2 Active confirmed 904737324 Problem Hypertensive heart disease without heart failure I 11.9 Active confirmed 53652111 Problem Other and unspecified hyperlipidemia 272.4 Act radhika confirmed 80628014 Problem Other chronic pain G89.29 Active confirmed 8 3241724 Problem Allergic rhinitis, cause unspecified 477.9 Act radhika confirmed 55728174 Problem Type 2 diabetes mellitus wit hout complication, without long-term current use of insulin E11.9 Active confirmed 585382494 Problem Hypothyroidism, unspecified type E03.9 Active conf irmed 78592597 Problem Polyneuropathy associated with underlying disease G63 Active confirmed 079543796 Problem Vitamin D deficiency E55.9 Active confirmed 42197506 ALLERGIES Allergen (clinical drug ingredient) Drug/Non Drug Allergy do cumented on EMR Reaction Allergy Type Onset Date Status NSAIDS hives Non Drug Allergy Active aspirin Aspirin([facility] Code:[address]-65) Nausea/Vomiting Drug Aller gy Active ENCOUNTERS from 1971 to 2021-08-05 Encounter Location Date Provider Diagnosis [facility] Mayuri [phone] [place] [address] 14 Jul, 2021 Jovanna Daniels Type 2 diabetes mellitus wit hout complication, without long-term current use of insulin E11.9 ; Hypertensive heart disease without heart failure I11.9 ; Mixed hyperlipidemia E78.2 ; Hypothyroidism, unspecified type E03.9 ; Polyneuropathy associated with underlying disease G63 ; Vitamin D deficiency E55.9 ; Low back pain M54.5 and Other chronic pain G89.29 IMMUNIZATIONS No Information SOCIAL HISTORY Tobacco Use: Social History Observation Description Date Details (start date - stop date) Never Smoker Sex Assigned At : Social History Observation Description Sex Assigned At Unknown Education: Question Answer Notes Level of Education: Not Finished College Audit Question Answer Notes Total Score: 0 Interpretation: Alcohol Education Language: Question Answer Notes Languages spoken: Ecuadorean Sabianism: Question Answer Notes Sabianism No mu-ism beliefs that would impact health care. Sexual [...] you a: never smoker REASON FOR REFERRAL from 1971 to 2021-08-05 Reason 51y/o female with chronic lo w back pain, was a patient at [facility] years ago, would like to re-establish Diagnosis 1 Low back pain (M54.5) Diagnosis 2 Other chronic pain (G89.29) Referral Organization [facility] Mayuri Referring Provider First Name Jovanna Referring Provider Last Name Jeremiah Referring Provider Specialty Family Medicine Referred Provider [facility],Orthopedics Referred Provider Specialty Orthopedic Surgery Referral Priority Routine General Notes Kell Macedo 08/04/2021 1:49 :55 PM > Referral submitted online, referral ID#[id number], scanned into patient's chart, faxedKell Macedo 08/04/2021 1:50:22 PM > referral faxed to [facility] Clinical Notes Elena Carnes 08/04/2021 11:47:19 AM > Waiting on [facility] referral auth VITAL SIGNS Weight 258 lbs Jul, Weight-kg 117.03 kg Jul, Height 61.75 in Jul, BMI 47.57 kg/m2 Jul, Heart Rate 105 /min Jul, Respiratory Rate 18 /min Jul, Temperature 97.7 degrees Fahrenheit Jul, Oximetry 99 Jul, Blood pressure systolic 124 mm Hg Jul, Blood pressure diastolic 8 mm Hg Jul, MEDICATIONS Medication SIG (Take, Route, Frequency, Duration) Notes Start Da te End Date Status metFORMIN HCl ER 500 MG TAKE TWO TABLETS BY MOUTH TWICE A DAY fo r 30 duplicate Not-Taking PriLOSEC 20 mg 1 capsule Orally Once a day for reflux for 30 da y(s) March, Not-Taking Lyrica 50 MG 1 capsule Orally Twice a day for 30 Days 23 S , 2020 Active metFORMIN HCl 500 mg 1 [...] Information RESULTS No Results REASON FOR VISIT follow up MEDICAL (GENERAL) HISTORY Type Description Date Medical History Hypothyroidism Medical History T2DM Medical History GERD Medical History Hyperlipidemia Surgical History R ankle (laparascopic, in her teens) Surgical History explorative abd surgery-endometriosis Surgical History partial hysterectomy 2015 Hospitalization History gallbladder childhood Hospitalization History childbirth Hospitalization History mental health issue (SI/HI - depress ion) x 1 week - [facility] 10 yrs ago Goals Section No Information Health Concerns No Information MEDICAL EQUIPMENT No Information MENTAL STATUS No Information FUNCTIONAL STATUS No Information ASSESSMENTS Encounter Date Diagnosis Assessment Notes Treatment Notes Treatm ent Clinical Notes Jul, Type 2 diabetes mellitus wit hout complication, without long-term current use of insulin (ICD-10 - E11.9) will add glipizide to patients regimen and increase her trulicity dose to 3mg weekly she should follow up in 6 weeks to go over her most recent glucose readings Jul, Hypertensive heart disease without heart failure (ICD-10 - I11.9) Per JNC 8 guidelines, goal BP < 140/90 (150/90 if age >60), is meeting goal on current regimen. Advised heart-healthy diet, sodium restriction Jul, Mixed hyperlipidemia (ICD-10 - E78.2) on Lipitor, will recheck lipids in 6 months Jul, Hypothyroidism, unspecified type (ICD-10 - E03.9 ) patient is asymptomatic on current dose of levothyroxine Jul, Polyneuropathy associated with underlying diseas e (ICD-10 - G63) symptoms worse at night, will send Gabapentin 100mg bid for patient to start for her symptoms iSTOP#: [id number] Jul, Vitamin D deficiency (ICD-10 - E55.9) on OTC supplements Jul, Low back pain (ICD-10 - M54.5) will refer patient back to [facility] per her request she should take tylenol for pain control and can use ice/heat as well Jul, Other chronic pain (ICD-10 - G89.29) PLAN OF TREATMENT Medication Medication Name Sig Start Date Stop Date Trulicity 3 MG/0.5ML as directed Subcutaneous weekly for 30 Days Lyrica 50 MG 1 capsule Orally Twice a day for 30 Days Jul, glipiZIDE 5 MG 1 tablet 30 minutes before b reakfast Orally Once a day for 30 day(s) Jul, Treatment Notes Assessment Notes Clinical Notes Type 2 diabetes mellitus without complic ation, without long-term current use of insulin will add glipizide to patien ts regimen and increase her trulicity dose to 3mg weeklyshe should follow up in 6 weeks to go over her most recent glucose readings Hypertensive heart disease without heart failure Per JNC 8 guidelines, goal BP < 140/90 (150/90 if age >60), is meeting goal on current regimen. Advised heart- healthy diet, sodium restriction Mixed hyperlipidemia on Lipitor, will re check lipids in 6 months Hypothyroidism, unspecified type patient is asymptomatic on current dose of levothyroxine Polyneuropathy associated with underlying disease symptoms worse at night, will send Gabapentin 100mg bid for patient to start for her symptomsiSTOP#: [id number] Vitamin D deficiency on OTC supplements Low back pain will refer patient b emmett to [facility] per her requestshe should take tylenol for pain control and can use ice/heat as well Future Test Test Name Order Date HEMOGLOBIN A1c [id number] Comprehensive Metabolic Profile (CMP) [id number] LIPID PANEL (CARDIAC RISK) [id number] FREE T4 & TSH PANEL [id number] VITAMIN D 25-HYDROXY [id number] MICROALBUMIN RANDOM [id number] Referrals Referral Date Details 51y/o female with chronic lo w back pain, was a patient at [facility] years ago, would like to re-establish, Orthopedics [facility] Next Appt Details 6 Weeks- Diabetes med check Reason: Insurance Providers Payer Name Payer Address Payer Phone Insured Name Patient Relati onship to Insured Coverage Start Date Coverage End Date [facility] [employer] [facility] [address] [facility] [phone] SERAFIN LIM self
--- OUTSIDE RECORDS SUMMARY | 2021-09-15 14:08 | CCD ---
Author Author [facility] Organization [facility] Address Unknown Phone Unavailable Care Team Providers Care Fighter Pilot Name Role Phone MARKUS, B SATISH CAMP HEAD COUNSELOR Unavailable Unavailable MARKUS, B SATISH CAMP HEAD COUNSELOR Unavailable Unavailable MARKUS, B SATISH CAMP HEAD COUNSELOR Unavailable Unavailable MARKUS, B SATISH CAMP HEAD COUNSELOR Unavailable Unavailable MARKUS, B SATISH CAMP HEAD COUNSELOR Unavailable Unavailable MARKUS, B SATISH CAMP HEAD COUNSELOR Unavailable Unavailable MARKUS, B SATISH CAMP HEAD COUNSELOR Unavailable Unavailable MARKUS, B SATISH CAMP HEAD COUNSELOR Unavailable Unavailable MARKUS, B SATISH CAMP HEAD COUNSELOR Unavailable Unavailable MARKUS, B SATISH CAMP HEAD COUNSELOR Unavailable Unavailable MARKUS, B SATISH CAMP HEAD COUNSELOR Unavailable Unavailable MARKUS, B SATISH CAMP HEAD COUNSELOR Unavailable Unavailable MARKUS, B SATISH CAMP HEAD COUNSELOR Unavailable Unavailable MARKUS, B SATISH CAMP HEAD COUNSELOR Unavailable Unavailable MARKUS, B SATISH CAMP HEAD COUNSELOR Unavailable Unavailable MARKUS, B SATISH CAMP HEAD COUNSELOR Unavailable Unavailable MARKUS, B SATISH CAMP HEAD COUNSELOR Unavailable Unavailable MARKUS, B SATISH CAMP HEAD COUNSELOR Unavailable Unavailable MARKUS, B SATISH CAMP HEAD COUNSELOR Unavailable Unavailable MARKUS, B SATISH CAMP HEAD COUNSELOR Unavailable Unavailable MARKUS, B SATISH CAMP HEAD COUNSELOR Unavailable Unavailable MARKUS, B SATISH CAMP HEAD COUNSELOR Unavailable Unavailable MARKUS, B SATISH CAMP HEAD COUNSELOR Unavailable Unavailable MARKUS, B SATISH CAMP HEAD COUNSELOR Unavailable Unavailable MARKUS, B SATISH CAMP HEAD COUNSELOR Unavailable Unavailable MARKUS, B SATISH CAMP HEAD COUNSELOR Unavailable Unavailable MARKUS, B SATISH CAMP HEAD COUNSELOR Unavailable Unavailable MARKUS, B SATISH CAMP HEAD COUNSELOR Unavailable Unavailable MARKUS, B SATISH CAMP HEAD COUNSELOR Unavailable Unavailable MARKUS, B SATISH CAMP HEAD COUNSELOR Unavailable Unavailable MARKUS, B SATISH CAMP HEAD COUNSELOR Unavailable Unavailable MARKUS, B SATISH CAMP HEAD COUNSELOR Unavailable Unavailable MARKUS, B SATISH CAMP HEAD COUNSELOR Unavailable Unavailable MARKUS, B SATISH CAMP HEAD COUNSELOR Unavailable Unavailable MARKUS, B SATISH CAMP HEAD COUNSELOR Unavailable Unavailable MARKUS, B SATISH CAMP HEAD COUNSELOR Unavailable Unavailable MARKUS, B SATISH CAMP HEAD COUNSELOR Unavailable Unavailable MARKUS, B SATISH CAMP HEAD COUNSELOR Unavailable Unavailable MARKUS, B SATISH CAMP HEAD COUNSELOR Unavailable Unavailable MARKUS, B SATISH CAMP HEAD COUNSELOR Unavailable Unavailable MARKUS, B SATISH CAMP HEAD COUNSELOR Unavailable Unavailable MARKUS, B SATISH CAMP HEAD COUNSELOR Unavailable Unavailable MARKUS, B SATISH CAMP HEAD COUNSELOR Unavailable Unavailable MARKUS, B SATISH CAMP HEAD COUNSELOR Unavailable Unavailable MARKUS, B SATISH CAMP HEAD COUNSELOR Unavailable Unavailable MARKUS, B SATISH CAMP HEAD COUNSELOR Unavailable Unavailable MARKUS, B SATISH CAMP HEAD COUNSELOR Unavailable Unavailable MARKUS, B SATISH CAMP HEAD COUNSELOR Unavailable Unavailable MARKUS, B SATISH CAMP HEAD COUNSELOR Unavailable Unavailable MARKUS, B SATISH CAMP HEAD COUNSELOR Unavailable Unavailable MARKUS, B SATISH CAMP HEAD COUNSELOR Unavailable Unavailable MARKUS, B SATISH CAMP HEAD COUNSELOR Unavailable Unavailable MARKUS, B SATISH CAMP HEAD COUNSELOR Unavailable Unavailable MARKUS, B SATISH CAMP HEAD COUNSELOR Unavailable Unavailable MARKUS, B SATISH CAMP HEAD COUNSELOR Unavailable Unavailable MARKUS, B SATISH CAMP HEAD COUNSELOR Unavailable Unavailable MARKUS, B SATISH CAMP HEAD COUNSELOR Unavailable Unavailable MARKUS, B SATISH CAMP HEAD COUNSELOR Unavailable Unavailable MARKUS, B SATISH CAMP HEAD COUNSELOR Unavailable Unavailable MARKUS, B SATISH CAMP HEAD COUNSELOR Unavailable Unavailable AMRKUS, B SATISH CAMP HEAD COUNSELOR Unavailable Unavailable MRAKUS, B SATISH CAMP HEAD COUNSELOR Unavailable Unavailable Re-disclosure Warning The records that [...] is protected by Article 27-F of the [facility] Public Health law. If you continue you may have access to information: Regarding HIV / AIDS; Provided by facilities licensed or operated by the [facility] Office of Mental Health; or Provided by the [facility] Office for People With Developmental Disabilities. If such information is present, then the following [facility] mandated warning applies: This information has [...] law may result in a fine or prison sentence or both. A general authorization for the release of medical or other information is NOT sufficient authorization for further disc losure. Family History Family Member Name Family Member Gender Family Member Status Date o f Status Description Data Source(s) Unknown Male Problem MEDENT ([facility]) Encounters Encounter Providers Location Date Indications Data Source(s ) Unknown [address] [facility] [address] 08/05/2021 12:00:00 AM EDT eCW1 ([facility]) Unknown [address] [facility] [address] 08/04/2021 12:00:00 AM EDT eCW1 ([facility]) Unknown [address] [facility] [address] 08/04/2021 12:00:00 AM EDT eCW1 ([facility]) Outpatient [address] [facility] [address] 07/26/2021 12:00:00 AM EDT eCW1 ([facility]) Unknown [address] [facility] [address] 04/06/2021 12:00:00 AM EDT eCW1 ([facility]) Outpatient [address] [facility] [address] 01/28/2021 12:00:00 AM EDT eCW1 ([facility]) Unknown [address] [facility] [address] 01/21/2021 12:00:00 AM EST eCW1 ([facility]) Outpatient Attender: SATISH APARICIO NP Physical Therapy 02:30:00 PM EST MEDENT ([facility]) Outpatient [address] [facility] [address] 10/21/2020 12:00:00 AM EST eCW1 ([facility]) Outpatient Attender: SATISH APARICIO NP Physical Therapy 09:30:00 AM EST MEDENT ([facility]) Unknown [address] [facility] [address] 09/24/2020 12:00:00 AM EST eCW1 ([facility]) Unknown [address] [facility] [address] 09/10/2020 12:00:00 AM EDT eCW1 ([facility]) Outpatient Attender: SATISH APARICIO NP Physical Therapy 10:00:00 AM EDT MEDENT ([facility]) Unknown [address] [facility] [address] 09/03/2020 12:00:00 AM EDT eCW1 ([facility]) Outpatient [address] [facility] [address] 09/02/2020 12:00:00 AM EDT eCW1 ([facility]) Immunizations Vaccine Date Status Description Data Source(s) COVID-19 VACCINE Moderna 04/20/2021 12:00:00 AM EDT completed [facility] Vaccine Series Complete: YESThis Data wa s Submitted to [facility]. COVID-19 VACCINE Moderna 03/23/2021 12:00:00 AM EDT completed [facility] Vaccine Series Complete: NOThis Data was Submitted to [facility] [employer]. Medications Medication Brand Name Start Date Product Form Dose Route Admi nistrative Instructions Pharmacy Instructions Status Indications Reaction Description Data Source(s) pregabalin 50 MG Oral Capsule [Lyrica] Lyrica 50 MG Lyrica 5 0 MG 08/04/2021 12:00:00 AM EDT 1.0 {capsule} active L yrica 50 MG eCW1 ([facility]) pregabalin 50 MG Oral Capsule [Lyrica] Lyrica 50 MG Lyrica 5 0 MG 08/04/2021 12:00:00 AM EDT 1.0 {capsule} active L yrica 50 MG eCW1 ([facility]) pregabalin 50 MG Oral Capsule [Lyrica] Lyrica 50 MG Lyrica 5 0 MG 08/04/2021 12:00:00 AM EDT 1.0 {capsule} active L yrica 50 MG eCW1 ([facility]) pregabalin 50 MG Oral Capsule [Lyrica] Lyrica 50 MG Lyrica 5 0 MG 08/04/2021 12:00:00 AM EDT 1.0 {capsule} active L yrica 50 MG eCW1 ([facility]) Glipizide 5 MG Oral Tablet glipiZIDE 5 MG glipiZIDE 5 MG 07/26/2021 12:00:00 AM EDT active glipiZIDE 5 MG eC W1 ([facility]) Glipizide 5 MG Oral Tablet glipiZIDE 5 MG glipiZIDE 5 MG 07/26/2021 12:00:00 AM EDT active glipiZIDE 5 MG eC W1 ([facility]) Glipizide 5 MG Oral Tablet glipiZIDE 5 MG glipiZIDE 5 MG 07/26/2021 12:00:00 AM EDT active glipiZIDE 5 MG eC W1 ([facility]) Glipizide 5 MG Oral Tablet glipiZIDE 5 MG glipiZIDE 5 MG 07/26/2021 12:00:00 AM EDT active glipiZIDE 5 MG eC W1 ([facility]) gabapentin 100 MG Oral Capsule Gabapentin 100 MG Gabapentin 100 MG 02/18/2021 12:00:00 AM EDT 1.0 {capsule} active G abapentin 100 MG eCW1 ([facility]) gabapentin 100 MG Oral Capsule Gabapentin 100 MG Gabapentin 100 MG 02/18/2021 12:00:00 AM EDT 1.0 {capsule} active G abapentin 100 MG eCW1 ([facility]) Fluconazole 150 MG Oral Tablet [Diflucan] Diflucan 01/14/2021 1 2:00:00 AM EST ORAL active MEDENT ([facility]) Steglatro Steglatro 12/24/2020 12:00:00 AM EST ORAL act radhika MEDENT ([facility]) atorvastatin 20 MG Oral Tablet [Lipitor] Lipitor 20 MG Lipit or 20 MG 10/21/2020 12:00:00 AM EST 1.0 {tablet} active Li pitor 20 MG eCW1 ([facility]) atorvastatin 20 MG Oral Tablet [Lipitor] Lipitor 20 MG Lipit or 20 MG 10/21/2020 12:00:00 AM EST 1.0 {tablet} active Li pitor 20 MG eCW1 ([facility]) 0.5 ML dulaglutide 3 MG/ML Auto-Injector [Trulicity] Trulici ty 10/14/2020 12:00:00 AM EST active M EDENT ([facility]) Benjy Araujo Lancets Extra Fine 33G 09/09/2020 12:00:00 AM ED T active [facility] ([facility]) 0.5 ML dulaglutide 1.5 MG/ML Auto-Injector [Trulicity] [place] 09/09/2020 12:00:00 AM EDT completed MEDENT ([facility]) Benjy Verio 09/09/2020 12:00:00 AM EDT act radhika MEDENT ([facility]) Insurance Providers Payer name Policy type / Coverage type Policy ID Covered green party ID Covered green party's relationship to piña Policy Piña Plan Information Medicaid S [id number] S [id number] [facility] Community Plan Commercial [id number] Self [id number] [facility] [id number] SP [id number] Managed Care - [facility] P [id number] S [id number] Medicaid S [id number] S [id number] Managed Care - [facility] P [id number] S [id number] [facility] Essential Plan P [id number] S [id number] Managed Care - [facility] Community Plan P [id number] S [id number] Managed Care - [facility] P [id number] S [id number] Medicaid S [id number] S [id number] Managed Care - [facility] Community Plan P [id number] S [id number] Medicaid S [id number] S [id number] Managed Care - [facility] P [id number] S [id number] SELF PAY ONLY [id number] SP [id number] [facility] PHY [id number] SP [id number] [facility] COMM[facility]ITY [facility]AN [facility] [id number] SP [id number] [facility] [id number] SP [id number] [facility] Essential Plan S [id number] S [id number] Self Pay P UNAVAILABLE S UNAVAILA BLE [facility] [id number] SP [id number] [facility] Health Maintenance Organization (HMO) [id number] Self [id number] [facility] Health Maintenance Organization (O) [id number] Self [id number] [facility] O [id number] S [id number] MEDICAID [id number] SP [id number] [employer] COMMUNITY PLAN [facility] [id number] SP [id number] [employer] COMMUNITY PLAN [facility] [id number] SP [id number] Problems, Conditions, and Diagnoses Code Display Name Description Problem Type Effective Dates Data Source(s) G89.29 [id number] Other chronic pain Problem 08/04/2021 12:00: 00 AM EDT eCW1 ([facility]) [id number] Essential hypertension Essential hypertension Problem 09/09/2020 12:00:00 AM EDT MEDENT ([facility]) E55.9 Vitamin D deficiency Vitamin D deficiency Problem 09/02/2020 12:00:00 AM EDT eCW1 ([facility]) G63 [id number] Polyneuropathy associated with underlying disease Problem 09/02/2020 12:00:00 AM EDT eCW1 ([facility]) E03.9 [id number] Hypothyroidism, unspecified type Problem 09/02/2020 12:00:00 AM EDT eCW1 ([facility]) E11.9 [id number] Type 2 diabetes larissa itus without complication, without long-term current use of insulin Problem 09/02/2020 12:00:00 AM EDT eCW1 ([facility]) I11.9 [id number] Hypertensive heart disease without heart failure Problem 09/02/2020 12:00:00 AM EDT eCW1 ([facility]) E78.2 [id number] Mixed hyperlipidemia Problem 09/02/2020 12:0 0:00 AM EDT eCW1 ([facility]) Surgeries/Procedures Procedure Description Date Indications Data Source(s) Diabetic Foot Exam 09/09/2020 12:00:00 AM EDT MEDENT ([facility]) Results ID Date Data Source [id number] 04/15/2021 12:00:00 AM EDT [facility] Name Value Range Interpretation Code Description Data Abena rce(s) Supporting Document(s) SARS coronavirus 2 Ag NEGATIVE [facility] This lab was ordered by [facility] and reported by [facility]. ID Date Data Source [id number] 04/07/2021 12:00:00 AM EDT [facility] Name Value Range Interpretation Code Description Data Abena rce(s) Supporting Document(s) SARS coronavirus 2 Ag NEGATIVE [facility] This lab was ordered by [facility] and reported by [facility]. ID Date Data Source [id number] 04/04/2021 08:48:00 AM EDT [facility] Name Value Range Interpretation Code Description Data Abena rce(s) Supporting Document(s) SARS-CoV-2 (COVID-19) RNA [Presence] in Respiratory specimen by JAE with probe detection Not Detected [facility] This lab was ordered by [facility] and reported by [employer] ID Date Data Source [id number] 03/29/2021 11:23:00 AM EDT [facility] Name Value Range Interpretation Code Description Data Abena rce(s) Supporting Document(s) SARS-CoV-2 (COVID-19) RNA [Presence] in Respiratory specimen by JAE with probe detection Not Detected [facility] This lab was ordered by [facility] and reported by [employer] ID Date Data Source [id number] 02/08/2021 01:07:00 PM EDT MEDENT ([facility]) Name Value Range Interpretation Code Description Data Abena rce(s) Supporting Document(s) Glucose, Fasting 189 mg/dL 70-100 MEDENT ([facility]) Blood Urea Nitrogen 16 mg/dL 7-18 [facility] ([facility]) Creatinine For GFR 0.69 mg/dL 0.55-1.30 MEDENT ([facility]) Glomerular Filtration Rate Laboratory test result MEDENT ([facility]) <content>Units are mL/min/1.73 m2</content>
<content></content>
<content>Chronic Kidney Disease Staging per NKF:</content>
<content></content>
<content>Stage I & II GFR >=60 Normal to Mildly Decreased</content>
<content>Stage III GFR 30- 59 Moderately Decreased</content>
<content>Stage IV GFR 15-29 Severely Decreased</content>
<content>Stage V GFR <15 Very Little GFR Left</content>
<content>ESRD GFR <15 on WAXING MACHINE OPERATOR</content>
<content></content> Sodium Level 139 meq/L 136-145 [facility] ([facility]) Potassium Serum 4.0 meq/L 3.5-5.1 MEDENT ([facility]) Chloride Level 105 meq/L 98-107 [facility] ([facility]) Anion Gap 9 meq/L 8-16 [facility]) Calcium Level 9.6 mg/dL 8.5-10.1 [facility] ([facility]) Carbon Dioxide Level 25 meq/L 21-32 [facility] ([facility]) ID Date Data Source [id number] 12/24/2020 01:42:00 PM EST MEDENT ([facility]) Name Value Range Interpretation Code Description Data Abena rce(s) Supporting Document(s) Glucose [Mass/volume] in Serum or Plasma 206 MEDENT ([facility]) Hemoglobin A1c/Hemoglobin.total in Blood Laboratory test result MEDENT ([facility]) ID Date Data Source [id number] 09/02/2020 12:00:00 AM EDT eCW1 ([facility]) Name Value Range Interpretation Code Description Data Abena rce(s) Supporting Document(s) 365 eCW1 ([facility]) 12.7 eCW1 ([facility]) ID Date Data Source [id number] 09/02/2020 12:00:00 AM EDT eCW1 ([facility]) Name Value Range Interpretation Code Description Data Abena rce(s) Supporting Document(s) 23.7 30.0-100.0 eCW1 ([facility]) ID Date Data Source [id number] 09/02/2020 12:00:00 AM EDT eCW1 ([facility]) Name Value Range Interpretation Code Description Data Abena rce(s) Supporting Document(s) Albumin/Creatinine [Mass Ratio] in Urine 45.5 eCW1 ([facility]) Microalbumin/Creatinine [Mass Ratio] in Urine 64.9 eCW1 ([facility]) Microalbumin/Creatinine [Ratio] in Urine 70.1 0.0-30.0 eCW1 ([facility]) ID Date Data Source LIPID PANEL (CARDIAC RISK) 09/02/2020 12:00:00 AM EDT eCW1 ( [facility]) Name Value Range Interpretation Code Description Data Abena rce(s) Supporting Document(s) Triglyceride [Mass/volume] in Serum or Plasma by calculation 288 <150 eCW1 ([facility]) Cholesterol in HDL [Moles/volume] in Serum or Plasma 41 >40 eCW1 ([facility]) Cholesterol in LDL [Mass/volume] in Serum or Plasma by calculation 12 7 <100 eCW1 ([facility]) Cholesterol [Moles/volume] in Serum or Plasma 226 <200 eCW1 ([facility]) 185 eCW1 ([facility]) 5.512 <5 eCW1 ([facility]) ID Date Data Source [id number] 09/02/2020 12:00:00 AM EDT eCW1 ([facility]) Name Value Range Interpretation Code Description Data Abena rce(s) Supporting Document(s) Hemoglobin A1c/Hemoglobin.total in Blood 13.2 eCW1 ([facility]) ID Date Data Source FREE T4 & TSH PANEL 09/02/2020 12:00:00 AM EDT eCW1 ([facility]) Name Value Range Interpretation Code Description Data Abena rce(s) Supporting Document(s) 4.010 0.358-3.740 eCW1 ([facility]) 1.00 0.76-1.46 eCW1 ([facility]) ID Date Data Source Comprehensive Metabolic Profile (CMP) 09/02/2020 12:00:00 AM EDT eCW1 ([facility]) Name Value Range Interpretation Code Description Data Abena rce(s) Supporting Document(s) 14 7-18 eCW1 ([facility]) 339 70-100 eCW1 ([facility]) > 60.0 >58 eCW1 ([facility]) 0.82 0.55-1.30 eCW1 ([facility]) 135 136-145 eCW1 ([facility]) 103 98-107 eCW1 ([facility]) 4.3 3.5-5.1 eCW1 ([facility]) 30 12-78 eCW1 ([facility]) 9.2 8.5-10.1 eCW1 ([facility]) 12 7-37 eCW1 ([facility]) 26 21-32 eCW1 ([facility]) 70 45-117 eCW1 ([facility]) 3.7 3.2-5.2 eCW1 ([facility]) 0.4 0.2-1.0 eCW1 ([facility]) 7.8 6.4-8.2 eCW1 ([facility]) 0.9 1.2-2.2 eCW1 ([facility]) Procedure Social History Code Duration Value Status Description Data Source(s ) Smoking 07/26/2021 12:00:00 AM EDT Never Smoker completed Never S moker eCW1 ([facility]) Smoking 07/26/2021 12:00:00 AM EDT Never Smoker completed Never S moker eCW1 ([facility]) Smoking 07/26/2021 12:00:00 AM EDT Never Smoker completed Never S moker eCW1 ([facility]) Smoking 07/26/2021 12:00:00 AM EDT Never Smoker completed Never S moker eCW1 ([facility]) Smoking 01/27/2021 12:00:00 AM EDT Never Smoker completed Never S moker eCW1 ([facility]) Smoking 01/27/2021 12:00:00 AM EDT Never Smoker completed Never S moker eCW1 ([facility]) Smoking 01/20/2021 12:00:00 AM EST Never Smoker completed Never S moker eCW1 ([facility]) Smoking 12/24/2020 12:00:00 AM EST Never Smoked Cigarettes com pleted Never Smoked Cigarettes MEDENT ([facility]) Smoking 10/21/2020 12:00:00 AM EST Never Smoker completed Never S moker eCW1 ([facility]) Smoking 09/02/2020 12:00:00 AM EDT Never Smoker completed Never S moker eCW1 ([facility]) Smoking 09/02/2020 12:00:00 AM EDT Never Smoker completed Never S moker eCW1 ([facility]) Smoking 09/02/2020 12:00:00 AM EDT Never Smoker completed Never S moker eCW1 ([facility]) Smoking 09/02/2020 12:00:00 AM EDT Never Smoker completed Never S moker eCW1 ([facility]) Vital Signs ID Date Data Source UNK Name Value Range Interpretation Code Description Data Source(s) Body weight 258 [lb_av] 258 [lb_av] eCW1 ([facility]) Body weight 117.03 kg 117.03 kg eCW1 ([facility]) Body height 61.75 [in_i] 61.75 [in_i] eCW1 ([facility]) Body mass index (BMI) [Ratio] 47.57 kg/m2 47.57 kg/m2 W1 ([facility]) Heart rate 105 /min 105 /min eCW1 ([facility]) Respiratory rate 18 /min 18 /min eCW1 ([facility]) Body temperature 97.7 [degF] 97.7 [degF] eCW1 ( [facility]) Systolic blood pressure 124 mm[Hg] 124 mm[Hg] e CW1 ([facility]) Diastolic blood pressure 8 mm[Hg] 8 mm[Hg] eCW1 ([facility]) Body weight 253 [lb_av] 253 [lb_av] eCW1 ([facility]) Body height 61.75 [in_i] 61.75 [in_i] eCW1 ([facility]) Body mass index (BMI) [Ratio] 46.64 kg/m2 46.64 kg/m2 eCW1 ([facility]) Heart rate 99 /min 99 /min eCW1 ([facility]) Respiratory rate 18 /min 18 /min eCW1 ([facility]) Body temperature 97.3 [degF] 97.3 [degF] eCW1 ( [facility]) Systolic blood pressure 122 mm[Hg] 122 mm[Hg] e CW1 ([facility]) Diastolic blood pressure 84 mm[Hg] 84 mm[Hg] eCW1 ([facility]) Systolic blood pressure 126 mm[Hg] 126 mm[Hg] M EDENT ([facility]) Diastolic blood pressure 86 mm[Hg] 86 mm[Hg] MEDENT ([facility]) Body temperature 96.4 [degF] 96.4 [degF] MEDENT ([facility]) Body height 61.4 [in_i] 61.4 [in_i] MEDENT ([facility]) 5'1.40" Body weight 260.12 [lb_av] 260.12 [lb_av] MEDEN T ([facility]) Heart rate 87 /min 87 /min MEDENT ([facility]) Body mass index (BMI) [Ratio] 48.5 kg/m2 48.5 k g/m2 MEDENT ([facility]) Oxygen saturation in Arterial blood by Pulse oximetry 98 % 98 % MEDENT ([facility]) Body weight 265 [lb_av] 265 [lb_av] eCW1 (Formerly [facility]) Body height 61.75 [in_i] 61.75 [in_i] eCW1 (Formerly [facility]) Body mass index (BMI) [Ratio] 48.86 kg/m2 48.86 kg/m2 eCW1 ([facility]) Heart rate 93 /min 93 /min eCW1 ([facility]) Respiratory rate 18 /min 18 /min eCW1 (Critical access hospital) Body temperature 97.5 [degF] 97.5 [degF] eCW1 ( [facility]) Systolic blood pressure 122 mm[Hg] 122 mm[Hg] e CW1 ([facility]) Diastolic blood pressure 80 mm[Hg] 80 mm[Hg] eCW1 ([facility]) Systolic blood pressure 122 mm[Hg] 122 mm[Hg] M EDENT ([facility]) Diastolic blood pressure 80 mm[Hg] 80 mm[Hg] MEDENT ([facility]) Heart rate 68 /min 68 /min MEDENT ([facility]) Body temperature 97.2 [degF] 97.2 [degF] MEDENT ([facility]) Body height 61.4 [in_i] 61.4 [in_i] MEDENT ([facility]) 5'1.40" Body weight 262.00 [lb_av] 262.00 [lb_av] MEDEN T ([facility]) Body mass index (BMI) [Ratio] 48.9 kg/m2 48.9 k g/m2 MEDENT ([facility]) Systolic blood pressure 142 mm[Hg] 142 mm[Hg] M EDENT ([facility]) Diastolic blood pressure 84 mm[Hg] 84 mm[Hg] MEDENT ([facility]) Heart rate 73 /min 73 /min MEDENT ([facility]) Body temperature 97.1 [degF] 97.1 [degF] MEDENT ([facility]) Body height 61.4 [in_i] 61.4 [in_i] MEDENT ([facility]) 5'1.40" Body weight 265.25 [lb_av] 265.25 [lb_av] MEDEN T ([facility]) Body mass index (BMI) [Ratio] 49.5 kg/m2 49.5 k g/m2 MEDENT ([facility]) Oxygen saturation in Arterial blood by Pulse oximetry 97 % 97 % MEDENT ([facility]) Body weight 264 [lb_av] 264 [lb_av] eCW1 (Formerly [facility]) Body height 61.75 [in_i] 61.75 [in_i] eCW1 (Formerly [facility]) Body mass index (BMI) [Ratio] 48.67 kg/m2 48.67 kg/m2 eCW1 ([facility]) Heart rate 111 /min 111 /min eCW1 ([facility]) Respiratory rate 18 /min 18 /min eCW1 (Critical access hospital) Body temperature 98.1 [degF] 98.1 [degF] eCW1 ( [facility]) Systolic blood pressure 130 mm[Hg] 130 mm[Hg] e CW1 ([facility]) Diastolic blood pressure 80 mm[Hg] 80 mm[Hg] eCW1 ([facility]) Patient Treatment Plan of Care Planned Activity Planned Date Details Description Data Source (s) pregabalin 50 MG Oral Capsule [Lyrica] 08/04/2021 12:00:00 AM EDT eCW1 ([facility]) pregabalin 50 MG Oral Capsule [Lyrica] 08/04/2021 12:00:00 AM EDT eCW1 ([facility]) pregabalin 50 MG Oral Capsule [Lyrica] 08/04/2021 12:00:00 AM EDT eCW1 ([facility]) pregabalin 50 MG Oral Capsule [Lyrica] 08/04/2021 12:00:00 AM EDT eCW1 ([facility]) Glipizide 5 MG Oral Tablet 07/26/2021 12:00:00 AM EDT eCW1 ([facility]) Glipizide 5 MG Oral Tablet 07/26/2021 12:00:00 AM EDT eCW1 ([facility]) Glipizide 5 MG Oral Tablet 07/26/2021 12:00:00 AM EDT eCW1 ([facility]) Glipizide 5 MG Oral Tablet 07/26/2021 12:00:00 AM EDT eCW1 ([facility]) gabapentin 100 MG Oral Capsule 02/18/2021 12:00:00 AM EDT eCW1 ([facility]) gabapentin 100 MG Oral Capsule 02/18/2021 12:00:00 AM EDT eCW1 ([facility]) atorvastatin 20 MG Oral Tablet [Lipitor] 10/21/2020 12:00:00 AM EST eCW1 ([facility])
[2021-09-15 17:57] LABS: RSV AMPLIFICATION NEGATIVE (NEGATIVE)
[2021-09-15] MEDS ORDERED: DULA3PEN (19:52)
[2021-09-15] MEDS ORDERED: LEVO100T5 (19:52)
[2021-09-15] MEDS ORDERED: GLIP5TAB8 (19:52)
[2021-09-15] MEDS ORDERED: METF-818 PO (19:52)
[2021-09-15] MEDS ORDERED: GABA-1171 (19:52)
[2021-09-15 20:33] VITALS: BP 148/98
== END 2021-09-15 20:36 | disposition home or self-care (01) ==
LOC: M ED 13:11
DX: R10.30 Lower abdominal pain, unspecified (principal); Z11.52 Encounter for screening for COVID-19; R11.0 Nausea; I10 Essential (primary) hypertension; J45.909 Unspecified asthma, uncomplicated; E11.9 Type 2 diabetes mellitus without complications; K21.9 Gastro-esophageal reflux disease without esophagitis; Z79.84 Long term (current) use of oral hypoglycemic drugs; Z79.890 Hormone replacement therapy; Z79.899 Other long term (current) drug therapy; Z88.8 Allergy status to other drugs, medicaments and biological substances; Z86.69 Personal history of other diseases of the nervous system and sense organs; Z86.79 Personal history of other diseases of the circulatory system; Z98.890 Other specified postprocedural states

== ENCOUNTER → 2022-04-05 | Outpatient (CLI) | payer OTHER ==
[~2022-04-05] MED LIST changes: +DULA3PEN; +GABA-1171; +GLIP5TAB8; +LEVO100T5; +METF-818 PO
[2022-04-05 13:29] LABS: BASO % 0.3 % (0.0-1.0); EOS # 0.1 10^3/uL (0.0-0.5); EOS % 1.4 % (0.0-3.0); HEMATOCRIT 38.3 % (36.0-47.0); HEMOGLOBIN 12.9 g/dl (12.0-15.5); LYMPH # 2.3 10^3/uL (1.5-5.0); LYMPH % 34.1 % (24.0-44.0); MEAN CORPUSCULAR HEMOGLOBIN 30.3 pg (27.0-33.0); MEAN CORPUSCULAR HGB CONC 33.7 g/dl (32.0-36.5); MEAN CORPUSCULAR VOLUME 89.9 fl (80.0-96.0); MONO # 0.5 10^3/uL (0.0-0.8); MONO % 7.7 % (2.0-8.0); NEUTROPHILS # 3.7 10^3/uL (1.5-8.5); PLATELET COUNT, AUTOMATED 261 10^3/uL (150-450); RED BLOOD COUNT 4.26 10^6/uL (4.00-5.40); WHITE BLOOD COUNT 6.7 10^3/uL (4.0-10.0)
[2022-04-05 14:05] LABS: ALBUMIN 3.4 GM/DL (3.2-5.2); ALT/SGPT 42 U/L (12-78); BILIRUBIN,TOTAL 0.3 MG/DL (0.2-1.0); BLOOD UREA NITROGEN 9 MG/DL (7-18); CALCIUM LEVEL 8.9 MG/DL (8.5-10.1); CARBON DIOXIDE LEVEL 26 MEQ/L (21-32); CHLORIDE LEVEL 107 MEQ/L (98-107); CHOLESTEROL LEVEL 162 MG/DL (<200); CHOLESTEROL RISK RATIO 4.153 (<5); CREATININE FOR GFR 0.66 MG/DL (0.55-1.30); GLOMERULAR FILTRATION RATE > 60.0 (>51); GLUCOSE, FASTING 133 MG/DL (70-100); HDL CHOLESTEROL 39 MG/DL (>40); LDL CHOLESTEROL 79 MG/DL (<100); NON-HDL-C 123 MG/DL; POTASSIUM SERUM 3.9 MEQ/L (3.5-5.1); SODIUM LEVEL 139 MEQ/L (136-145); TOTAL 25(OH) VITAMIN D 15.6 NG/ML (30.0-100.0); TOTAL PROTEIN 6.9 GM/DL (6.4-8.2); TRIGLYCERIDES LEVEL 220 MG/DL (<150)
[2022-04-05 15:38] LABS: HEMOGLOBIN A1c 6.9 %
[2022-04-05 15:45] LABS: APPEARANCE, URINE CLOUDY (CLEAR); BACTERIA, URINE AUTO NEGATIVE (NEGATIVE); BILIRUBIN, URINE AUTO NEGATIVE (NEGATIVE); BLOOD, URINE BLOOD NEGATIVE (NEGATIVE); CALCIUM OXALATE CRYSTALS LARGE; COLOR, URINE YELLOW (YELLOW); GLUCOSE, URINE (UA) AUTO NEGATIVE (NEGATIVE); KETONE, URINE AUTO NEGATIVE (NEGATIVE); LEUKOCYTE ESTERASE, URINE AUTO NEGATIVE (NEGATIVE); MUCUS, URINE SMALL (NEGATIVE); NITRITE, URINE AUTO NEGATIVE (NEGATIVE); PROTEIN, URINE AUTO NEGATIVE (NEGATIVE); RBC, URINE AUTO 0 /HPF (0-3); SPECIFIC GRAVITY URINE AUTO 1.031 (1.002-1.035); SQUAMOUS EPITHELIAL CELL UR AU 17 /HPF (0-6); UROBILINOGEN, URINE AUTO 0.2 mg/dL (0.0-2.0); WBC, URINE AUTO 0 /HPF (0-3)
[2022-04-05 16:41] LABS: MALB URINE SIEMENS 24.7 MG/L; MAU/CREAT RATIO 11.4 MCG/MG (0.0-30.0)
== END ==
LOC: M PLALAB 11:37
PROVIDERS: ATTEND Physician Assistant
DX: E55.9 Vitamin D deficiency, unspecified (principal); I11.9 Hypertensive heart disease without heart failure; E78.2 Mixed hyperlipidemia; E03.9 Hypothyroidism, unspecified

== ENCOUNTER → 2022-05-02 | Outpatient (CLI) | payer OTHER ==
[2022-05-02 11:15] LABS: ALBUMIN 3.6 GM/DL (3.2-5.2); ALT/SGPT 29 U/L (12-78); BILIRUBIN,TOTAL 0.4 MG/DL (0.2-1.0); BLOOD UREA NITROGEN 16 MG/DL (7-18); CALCIUM LEVEL 9.8 MG/DL (8.5-10.1); CARBON DIOXIDE LEVEL 26 MEQ/L (21-32); CHLORIDE LEVEL 108 MEQ/L (98-107); CREATININE FOR GFR 0.62 MG/DL (0.55-1.30); GLOMERULAR FILTRATION RATE > 60.0 (>51); GLUCOSE, FASTING 150 MG/DL (70-100); POTASSIUM SERUM 4.2 MEQ/L (3.5-5.1); SODIUM LEVEL 141 MEQ/L (136-145); TOTAL PROTEIN 7.1 GM/DL (6.4-8.2)
== END ==
LOC: M PLALAB 08:30
PROVIDERS: ATTEND Physician Assistant
DX: E03.9 Hypothyroidism, unspecified (principal); I10 Essential (primary) hypertension

== ENCOUNTER → 2022-07-14 | Outpatient (CLI) | payer OTHER ==
[2022-07-14 15:16] LABS: THYROID STIMULATING HORMONE 3.53 uIU/ML (0.358-3.740)
[2022-07-14 15:31] LABS: HEMOGLOBIN A1c 7.1 %
[2022-07-14 15:59] LABS: TOTAL 25(OH) VITAMIN D 44.3 NG/ML (30.0-100.0)
== END ==
LOC: M PLALAB 12:00
PROVIDERS: ATTEND Physician Assistant
DX: E03.9 Hypothyroidism, unspecified (principal); E11.9 Type 2 diabetes mellitus without complications; E55.9 Vitamin D deficiency, unspecified

== ENCOUNTER → 2022-10-09 | Outpatient (CLI) | payer OTHER ==
[2022-10-09 14:27] LABS: BASO % 0.3 % (0.0-1.0); EOS # 0.1 10^3/uL (0.0-0.5); EOS % 1.4 % (0.0-3.0); HEMATOCRIT 40.6 % (36.0-47.0); HEMOGLOBIN 13.5 g/dl (12.0-15.5); LYMPH # 2.3 10^3/uL (1.5-5.0); LYMPH % 32.3 % (24.0-44.0); MEAN CORPUSCULAR HEMOGLOBIN 30.1 pg (27.0-33.0); MEAN CORPUSCULAR HGB CONC 33.3 g/dl (32.0-36.5); MEAN CORPUSCULAR VOLUME 90.6 fl (80.0-96.0); MONO # 0.5 10^3/uL (0.0-0.8); NEUTROPHILS # 4.2 10^3/uL (1.5-8.5); NEUTROPHILS % 58.6 % (36.0-66.0); PLATELET COUNT, AUTOMATED 259 10^3/uL (150-450); RED BLOOD COUNT 4.48 10^6/uL (4.00-5.40); WHITE BLOOD COUNT 7.2 10^3/uL (4.0-10.0)
[2022-10-09 16:20] LABS: CHLORIDE LEVEL 101 MMOL/L (98-107); POTASSIUM SERUM 4.4 MMOL/L (3.5-5.1); SODIUM LEVEL 137 MMOL/L (136-145)
[2022-10-09 16:21] LABS: ALBUMIN 3.8 G/DL (3.2-5.2); CARBON DIOXIDE LEVEL 22 MMOL/L (20-31)
[2022-10-09 16:25] LABS: ALKALINE PHOSPHATASE 67 U/L (46-116)
[2022-10-09 16:26] LABS: BLOOD UREA NITROGEN 14 MG/DL (9-23); CALCIUM LEVEL 9.6 MG/DL (8.5-10.1); GLUCOSE, FASTING 186 MG/DL (60-100)
[2022-10-09 16:27] LABS: THYROID STIMULATING HORMONE 1.775 uIU/ML (0.55-4.78)
[2022-10-09 16:28] LABS: ALT/SGPT 21 U/L (7.0-40); AST/SGOT 15 U/L (<34); BILIRUBIN,TOTAL 0.3 MG/DL (0.3-1.2); CREATININE FOR GFR 0.55 MG/DL (0.55-1.30); GLOMERULAR FILTRATION RATE > 60.0 (>51)
[2022-10-09 16:29] LABS: TOTAL PROTEIN 7.1 G/DL (5.7-8.2)
[2022-10-09 20:08] LABS: HEMOGLOBIN A1c 7.5 % (4.0-6.0)
== END ==
LOC: M PLALAB 09:30
PROVIDERS: ATTEND Physician Assistant
DX: E11.9 Type 2 diabetes mellitus without complications (principal); G63 Polyneuropathy in diseases classified elsewhere

== ENCOUNTER → 2022-10-19 | Outpatient (REF) | payer OTHER | LOC: M SFHCPLAZ 12:09 | PROVIDERS: ATTEND Physician Assistant | DX: R82.90 Unspecified abnormal findings in urine (principal) ==

== ENCOUNTER → 2022-10-19 | Outpatient (CLI) | payer OTHER ==
[2022-10-19 15:42] LABS: LIPASE 49 U/L (12-53)
[2022-10-19 15:43] LABS: AMYLASE 73 U/L (30-118)
== END ==
LOC: M PLALAB 12:40
PROVIDERS: ATTEND Physician Assistant
DX: R82.90 Unspecified abnormal findings in urine (principal); G63 Polyneuropathy in diseases classified elsewhere; R19.5 Other fecal abnormalities

== ENCOUNTER → 2023-01-18 | Outpatient (CLI) | payer OTHER ==
[2023-01-18 14:03] LABS: BASO % 0.5 % (0.0-1.0); EOS # 0.1 10^3/uL (0.0-0.5); EOS % 1.9 % (0.0-3.0); HEMATOCRIT 39.8 % (36.0-47.0); HEMOGLOBIN 13.2 g/dl (12.0-15.5); LYMPH # 2.3 10^3/uL (1.5-5.0); LYMPH % 39.9 % (24.0-44.0); MEAN CORPUSCULAR HEMOGLOBIN 30.3 pg (27.0-33.0); MEAN CORPUSCULAR HGB CONC 33.2 g/dl (32.0-36.5); MEAN CORPUSCULAR VOLUME 91.5 fl (80.0-96.0); MONO # 0.5 10^3/uL (0.0-0.8); MONO % 8.3 % (2.0-8.0); NEUTROPHILS # 2.8 10^3/uL (1.5-8.5); PLATELET COUNT, AUTOMATED 216 10^3/uL (150-450); RED BLOOD COUNT 4.35 10^6/uL (4.00-5.40); WHITE BLOOD COUNT 5.7 10^3/uL (4.0-10.0)
[2023-01-18 14:08] LABS: APPEARANCE, URINE HAZY (CLEAR); BACTERIA, URINE AUTO NEGATIVE (NEGATIVE); BILIRUBIN, URINE AUTO NEGATIVE (NEGATIVE); BLOOD, URINE BLOOD 2+ (NEGATIVE); COLOR, URINE YELLOW (YELLOW); GLUCOSE, URINE (UA) AUTO 3+ mg/dL (NEGATIVE); KETONE, URINE AUTO 1+ mg/dL (NEGATIVE); LEUKOCYTE ESTERASE, URINE AUTO TRACE (NEGATIVE); MUCUS, URINE SMALL (NEGATIVE); NITRITE, URINE AUTO NEGATIVE (NEGATIVE); PROTEIN, URINE AUTO NEGATIVE (NEGATIVE); RBC, URINE AUTO 7 /HPF (0-3); SPECIFIC GRAVITY URINE AUTO 1.039 (1.002-1.035); SQUAMOUS EPITHELIAL CELL UR AU 7 /HPF (0-6); UROBILINOGEN, URINE AUTO 0.2 mg/dL (0.0-2.0); WBC, URINE AUTO 0 /HPF (0-3)
[2023-01-18 14:16] LABS: HEMOGLOBIN A1c 10.2 % (4.0-6.0)
[2023-01-18 14:33] LABS: ALBUMIN 3.6 G/DL (3.2-5.2); ALKALINE PHOSPHATASE 62 U/L (46-116); ALT/SGPT 38 U/L (7.0-40); AST/SGOT 32 U/L (<34); BILIRUBIN,TOTAL 0.3 MG/DL (0.3-1.2); BLOOD UREA NITROGEN 12 MG/DL (9-23); CALCIUM LEVEL 9.1 MG/DL (8.5-10.1); CARBON DIOXIDE LEVEL 24 MMOL/L (20-31); CHLORIDE LEVEL 104 MMOL/L (98-107); CHOLESTEROL LEVEL 123 MG/DL (<200); CREATININE FOR GFR 0.59 MG/DL (0.55-1.30); FREE T4 1.25 NG/DL (0.89-1.76); GLOMERULAR FILTRATION RATE > 60.0 (>51); GLUCOSE, FASTING 289 MG/DL (60-100); HDL CHOLESTEROL 36.1 MG/DL (>40); LDL CHOLESTEROL 37.9 MG/DL (<100); NON-HDL-C 86.9 MG/DL; POTASSIUM SERUM 4.4 MMOL/L (3.5-5.1); SODIUM LEVEL 140 MMOL/L (136-145); THYROID STIMULATING HORMONE 1.887 uIU/ML (0.55-4.78); TOTAL PROTEIN 6.8 G/DL (5.7-8.2); TRIGLYCERIDES LEVEL 245 MG/DL (<150)
== END ==
LOC: M PLALAB 09:47
PROVIDERS: ATTEND Physician Assistant
DX: E11.9 Type 2 diabetes mellitus without complications (principal); Z68.43 Body mass index [BMI] 50.0-59.9, adult; E03.9 Hypothyroidism, unspecified; R30.0 Dysuria

== ENCOUNTER → 2023-01-23 | Outpatient (REF) | LOC: M PLAIMG 09:42 | PROVIDERS: ATTEND Internal Medicine | DX: R52 Pain, unspecified (principal) ==

== ENCOUNTER → 2023-01-29 | Outpatient (CLI) | payer OTHER ==
[~2023-01-29] MED LIST changes: +E-Z-GAS II EFFERVESCENT PACKET (SODIUM BICARB./CITRIC ACID/SIMETHICONE) As Ordered ONE; +E-Z-HD 98% w/w 340GM SUSP BTL As Ordered ONE; +E-Z-PAQUE 96% w/w SUSP 176GM BTL As Ordered ONE
== END ==
LOC: M RAD 08:00
PROVIDERS: ATTEND Physician Assistant Medical
DX: R13.10 Dysphagia, unspecified (principal); K21.9 Gastro-esophageal reflux disease without esophagitis

== ENCOUNTER → 2023-08-23 | Outpatient (REF) ==
[~2023-08-23] MED LIST changes: -E-Z-GAS II EFFERVESCENT PACKET (SODIUM BICARB./CITRIC ACID/SIMETHICONE) As Ordered ONE; -E-Z-HD 98% w/w 340GM SUSP BTL As Ordered ONE; -E-Z-PAQUE 96% w/w SUSP 176GM BTL As Ordered ONE; +GLIP5TAB17; -GLIP5TAB8; +NYST100085 TOP; -NYSTOI TOP
== END ==
LOC: M PLAIMG 08:39
PROVIDERS: ATTEND Internal Medicine
DX: M47.816 Spondylosis without myelopathy or radiculopathy, lumbar region (principal); M17.11 Unilateral primary osteoarthritis, right knee; R52 Pain, unspecified

== ENCOUNTER → 2023-08-23 | Outpatient (CLI) | payer OTHER ==
[2023-08-23 13:23] LABS: BASO % 0.7 % (0.0-1.0); EOS # 0.1 10^3/uL (0.0-0.5); EOS % 1.7 % (0.0-3.0); HEMATOCRIT 39.3 % (36.0-47.0); HEMOGLOBIN 13.1 g/dl (12.0-15.5); LYMPH # 2.3 10^3/uL (1.5-5.0); LYMPH % 39.1 % (24.0-44.0); MEAN CORPUSCULAR HGB CONC 33.3 g/dl (32.0-36.5); MEAN CORPUSCULAR VOLUME 89.9 fl (80.0-96.0); MONO # 0.6 10^3/uL (0.0-0.8); MONO % 9.5 % (2.0-8.0); NEUTROPHILS # 2.8 10^3/uL (1.5-8.5); NEUTROPHILS % 48.8 % (36.0-66.0); PLATELET COUNT, AUTOMATED 245 10^3/uL (150-450); RED BLOOD COUNT 4.37 10^6/uL (4.00-5.40); WHITE BLOOD COUNT 5.8 10^3/uL (4.0-10.0)
[2023-08-23 13:31] LABS: ALBUMIN 3.7 G/DL (3.2-5.2); ALKALINE PHOSPHATASE 83 U/L (46-116); ALT/SGPT 60 U/L (7.0-40); AST/SGOT 53 U/L (<34); BILIRUBIN,TOTAL 0.5 MG/DL (0.3-1.2); BLOOD UREA NITROGEN 13 MG/DL (9-23); CALCIUM LEVEL 9.3 MG/DL (8.5-10.1); CARBON DIOXIDE LEVEL 27 MMOL/L (20-31); CHLORIDE LEVEL 103 MMOL/L (98-107); CREATININE FOR GFR 0.54 MG/DL (0.55-1.30); GLOMERULAR FILTRATION RATE > 60.0 (>51); GLUCOSE, FASTING 228 MG/DL (60-100); POTASSIUM SERUM 4.1 MMOL/L (3.5-5.1); SODIUM LEVEL 140 MMOL/L (136-145); THYROID STIMULATING HORMONE 2.833 uIU/ML (0.55-4.78)
[2023-08-23 13:32] LABS: FREE T4 1.16 NG/DL (0.89-1.76); TOTAL 25(OH) VITAMIN D 87.9 NG/ML (20.0-100.0)
[2023-08-23 13:41] LABS: HEMOGLOBIN A1c 10.9 % (4.0-6.0)
== END ==
LOC: M PLALAB 08:42
PROVIDERS: ATTEND Physician Assistant
DX: E11.9 Type 2 diabetes mellitus without complications (principal); E03.9 Hypothyroidism, unspecified; E55.9 Vitamin D deficiency, unspecified

== ENCOUNTER 2023-11-08 11:03 | Day surgery (SDC) | payer OTHER ==
[~2023-11-08] VITALS: Ht 154.9 cm; Wt 116.8 kg
[~2023-11-08 11:03] MED LIST changes: +ATOR1TAB21 PO; +CLAR10CA3 PO; +CLOP75TA2 PO; +DULA4.5P SQ; +GABA-282 PO; +GLIP10TA PO; -LEVO100T5; +LEVO100T5 PO; +LISI5TAB11 PO; +NORT25CA2 PO; +NS 1,000 ML IV ONE; +RIZA10TA58 PO; +VITA500045 PO
[2023-11-08] MEDS ORDERED: PANT40TA29 PO (11:36)
[2023-11-08] MEDS ORDERED: LABETALOL 100MG/20ML VIAL As Ordered ONE (12:22)
[2023-11-08] MEDS ORDERED: LIDOCAINE 2% 100MG/5ML SDV (FOR ANES.) As Ordered ONE (12:22)
[2023-11-08] MEDS ORDERED: propofoL 200 MG/20 ML VIAL As Ordered ONE ×2 (12:22→12:30)
[2023-11-08] MEDS ORDERED: fentaNYL 100 MCG/2 ML INJECTION As Ordered ONE (12:22)
[2023-11-08 12:49] VITALS: TEMP 98
[2023-11-08 13:05] VITALS: BP 111/67; O2SAT 95
== END 2023-11-08 13:16 | disposition home or self-care (01) ==
LOC: M OPP 11:03
PROVIDERS: ATTEND Internal Medicine Gastroenterology
DX: Z12.11 Encounter for screening for malignant neoplasm of colon (principal); Z86.010 Personal history of colon polyps; D12.5 Benign neoplasm of sigmoid colon; K64.8 Other hemorrhoids; K22.89 Other specified disease of esophagus; K29.70 Gastritis, unspecified, without bleeding; R12 Heartburn; E11.9 Type 2 diabetes mellitus without complications; I72.9 Aneurysm of unspecified site; Z79.02 Long term (current) use of antithrombotics/antiplatelets; Z79.84 Long term (current) use of oral hypoglycemic drugs; Z79.85 Long-term (current) use of injectable non-insulin antidiabetic drugs; Z79.890 Hormone replacement therapy; Z79.891 Long term (current) use of opiate analgesic; Z79.899 Other long term (current) drug therapy
CPT/HCPCS: 43239; 45385; 88305; J1920; J3010

== ENCOUNTER → 2023-12-11 | Outpatient (CLI) | payer OTHER ==
[~2023-12-11] MED LIST changes: -NS 1,000 ML IV ONE; +PANT40TA29 PO
== END ==
LOC: M WHC 08:30
PROVIDERS: ATTEND Physician Assistant
DX: Z12.31 Encounter for screening mammogram for malignant neoplasm of breast (principal)

== ENCOUNTER → 2024-04-08 | Outpatient (REF) | LOC: M PLAIMG 10:46 | PROVIDERS: ATTEND Internal Medicine | DX: M54.50 Low back pain, unspecified (principal); M25.561 Pain in right knee ==

== ENCOUNTER 2024-05-16 18:36 | Emergency (ER) | payer OTHER ==
[~2024-05-16] VITALS: Ht 154.9 cm; Wt 111.3 kg
[2024-05-16] MEDS ORDERED: CYCL-707 PO (19:57)
[2024-05-16] MEDS ORDERED: CELE0.09 PO (19:57)
[2024-05-16] MEDS: CYCLOBENZAPRINE 10MG TABLET PO ONE (19:58)
[2024-05-16 20:05] VITALS: BP 121/85; TEMP 96.5; O2SAT 97
[2024-05-16] MEDS: CelecoXIB (CeleBREX) 100 MG CAP PO SCH (20:16)
== END 2024-05-16 20:28 | disposition home or self-care (01) ==
LOC: M ED 18:36
DX: M54.32 Sciatica, left side (principal); E11.9 Type 2 diabetes mellitus without complications; I10 Essential (primary) hypertension; F17.200 Nicotine dependence, unspecified, uncomplicated; Z88.6 Allergy status to analgesic agent; Z79.02 Long term (current) use of antithrombotics/antiplatelets; Z79.811 Long term (current) use of aromatase inhibitors; Z79.4 Long term (current) use of insulin; Z79.899 Other long term (current) drug therapy

== ENCOUNTER → 2024-05-28 | Outpatient (CLI) | payer OTHER ==
[~2024-05-28] MED LIST changes: +CELE0.09 PO; +CYCL-707 PO
[2024-05-28 13:05] LABS: BASO % 0.5 % (0.0-1.0); EOS # 0.1 10^3/uL (0.0-0.5); HEMATOCRIT 37.2 % (36.0-47.0); HEMOGLOBIN 12.4 g/dl (12.0-15.5); LYMPH # 2.3 10^3/uL (1.5-5.0); LYMPH % 37.2 % (24.0-44.0); MEAN CORPUSCULAR HEMOGLOBIN 29.4 pg (27.0-33.0); MEAN CORPUSCULAR HGB CONC 33.3 g/dl (32.0-36.5); MEAN CORPUSCULAR VOLUME 88.2 fl (80.0-96.0); MONO # 0.5 10^3/uL (0.0-0.8); MONO % 8.1 % (2.0-8.0); NEUTROPHILS # 3.3 10^3/uL (1.5-8.5); NEUTROPHILS % 52.9 % (36.0-66.0); PLATELET COUNT, AUTOMATED 313 10^3/uL (150-450); RED BLOOD COUNT 4.22 10^6/uL (4.00-5.40); WHITE BLOOD COUNT 6.2 10^3/uL (4.0-10.0)
[2024-05-28 13:22] LABS: HEMOGLOBIN A1c 8.1 % (4.0-6.0)
[2024-05-28 13:27] LABS: CREATININE, URINE 160.1 MG/DL; MAU/CREAT RATIO 4.3 MCG/MG (0.0-30.0)
[2024-05-28 13:31] LABS: ALBUMIN 3.5 G/DL (3.2-5.2); ALKALINE PHOSPHATASE 79 U/L (46-116); ALT/SGPT 24 U/L (7.0-40); AST/SGOT 9 U/L (<34); BILIRUBIN,TOTAL 0.3 MG/DL (0.3-1.2); BLOOD UREA NITROGEN 21 MG/DL (9-23); CALCIUM LEVEL 9.8 MG/DL (8.5-10.1); CARBON DIOXIDE LEVEL 26 MMOL/L (20-31); CHLORIDE LEVEL 107 MMOL/L (98-107); CHOLESTEROL LEVEL 134 MG/DL (<200); CHOLESTEROL RISK RATIO 4.01 (<5); CREATININE FOR GFR 0.62 MG/DL (0.55-1.30); GLOMERULAR FILTRATION RATE > 60.0 (>51); GLUCOSE, FASTING 147 MG/DL (60-100); HDL CHOLESTEROL 33.4 MG/DL (>40); LDL CHOLESTEROL 64.4 MG/DL (<100); NON-HDL-C 100.6 MG/DL; POTASSIUM SERUM 4.2 MMOL/L (3.5-5.1); SODIUM LEVEL 141 MMOL/L (136-145); TOTAL PROTEIN 6.8 G/DL (5.7-8.2); TRIGLYCERIDES LEVEL 181 MG/DL (<150)
[2024-05-28 13:34] LABS: FREE T4 1.37 NG/DL (0.89-1.76); THYROID STIMULATING HORMONE 0.532 uIU/ML (0.55-4.78)
[2024-05-28 13:36] LABS: TOTAL 25(OH) VITAMIN D 95.2 NG/ML (20.0-100.0); VITAMIN B12 LEVEL 287 PG/ML (211-911)
== END ==
LOC: M PLALAB 10:06
PROVIDERS: ATTEND Physician Assistant
DX: E03.9 Hypothyroidism, unspecified (principal); E55.9 Vitamin D deficiency, unspecified; Z79.4 Long term (current) use of insulin; E11.65 Type 2 diabetes mellitus with hyperglycemia; Z13.220 Encounter for screening for lipoid disorders

== ENCOUNTER → 2024-09-24 | Outpatient (CLI) | payer OTHER ==
[~2024-09-24] MED LIST changes: +GABA-1172 PO; -GABA-282 PO; +METF-1157 PO; -METF-818 PO
== END ==
LOC: M SOG 07:48
PROVIDERS: ATTEND Orthopaedic Surgery
DX: M25.551 Pain in right hip (principal); M25.552 Pain in left hip

== ENCOUNTER → 2024-11-26 | Outpatient (CLI) | payer OTHER ==
[2024-11-26 15:48] LABS: HEMOGLOBIN A1c 7.2 % (4.0-6.0)
== END ==
LOC: M PLALAB 14:06
PROVIDERS: ATTEND Nurse Practitioner Family
DX: E11.65 Type 2 diabetes mellitus with hyperglycemia (principal)

== ENCOUNTER → 2024-11-26 | Outpatient (CLI) | payer OTHER | LOC: M SOG 07:53 | PROVIDERS: ATTEND Orthopaedic Surgery | DX: M17.0 Bilateral primary osteoarthritis of knee (principal); M25.561 Pain in right knee; M25.562 Pain in left knee ==

== ENCOUNTER → 2024-11-26 | Outpatient (CLI) | payer OTHER ==
[2024-11-26 15:23] LABS: BASO # 0.1 10^3/uL (0.0-0.2); BASO % 0.6 % (0.0-1.0); EOS # 0.1 10^3/uL (0.0-0.5); EOS % 0.9 % (0.0-3.0); HEMATOCRIT 39.5 % (36.0-47.0); HEMOGLOBIN 13.2 g/dl (12.0-15.5); LYMPH # 3.7 10^3/uL (1.5-5.0); LYMPH % 47.9 % (24.0-44.0); MEAN CORPUSCULAR HEMOGLOBIN 29.2 pg (27.0-33.0); MEAN CORPUSCULAR HGB CONC 33.4 g/dl (32.0-36.5); MEAN CORPUSCULAR VOLUME 87.4 fl (80.0-96.0); MONO # 0.6 10^3/uL (0.0-0.8); MONO % 7.5 % (2.0-8.0); NEUTROPHILS # 3.3 10^3/uL (1.5-8.5); PLATELET COUNT, AUTOMATED 307 10^3/uL (150-450); RED BLOOD COUNT 4.52 10^6/uL (4.00-5.40); WHITE BLOOD COUNT 7.8 10^3/uL (4.0-10.0)
[2024-11-26 15:56] LABS: ALBUMIN 3.9 G/DL (3.2-5.2); ALKALINE PHOSPHATASE 99 U/L (35-104); ALT/SGPT 29 U/L (7.0-40); AST/SGOT 14 U/L (<34); BILIRUBIN,TOTAL 0.3 MG/DL (0.3-1.2); BLOOD UREA NITROGEN 17 MG/DL (9-23); CALCIUM LEVEL 10.1 MG/DL (8.5-10.1); CARBON DIOXIDE LEVEL 27 MMOL/L (20-31); CHLORIDE LEVEL 105 MMOL/L (98-107); CREATININE FOR GFR 0.61 MG/DL (0.55-1.30); GLOMERULAR FILTRATION RATE > 60.0 (>51); GLUCOSE, FASTING 117 MG/DL (60-100); POTASSIUM SERUM 4.6 MMOL/L (3.5-5.1); SODIUM LEVEL 141 MMOL/L (136-145); TOTAL PROTEIN 7.4 G/DL (5.7-8.2)
== END ==
LOC: M PLALAB 14:04
PROVIDERS: ATTEND Psychiatry & Neurology Neurology
DX: R51.9 Headache, unspecified (principal)